=== PATIENT | male | born 1940 | race African-American/Black ===

== ENCOUNTER 2018-11-02 01:59 | Inpatient (IN) ==
[2018-11-02] MEDS ORDERED: ASPIRIN ONE (02:27)
[2018-11-02 02:47] LABS: INR 1.4; PROTIME 18.2 Seconds (11.0-16.0)
[2018-11-02 02:48] LABS: BASO# 0.03 X1000 (0.0-0.2); BASO% 0.3 % (0.0-0.8); EOS# 0.25 X1000 (0.0-0.7); EOS% 2.7 % (0.0-10.0); HEMOGLOBIN 10.6 g/dL (14.0-18.0); LYMPH# 0.89 X1000 (1.2-3.4); LYMPH% 9.5 % (20.5-51.1); MCH 29.7 PG (27-31); MCHC 33.1 g/dL (33-37); MCV 89.6 FL (81-99); MONO# 0.48 X1000 (0.11-0.59); MONO% 5.1 % (1.7-9.3); MPV 12.3 FL (7.4-10.4); NEUT# 7.73 X1000 (1.4-6.5); NEUT% 82.4 % (42.2-75.2); PLT 229 X1000 (130-400); RBC 3.57 XMIL (4.7-6.1); RDW 14.6 % (11.5-14.5); WBC 9.38 X1000 (4.8-10.8)
[2018-11-02] MEDS ORDERED: ASPIRIN PO ONE (02:55)
[2018-11-02 03:15] LABS: AGAP 13; BUN 18 mg/dL (8-22); CHLORIDE 101 mmol/L (98-107); COSMO 283; GLUCOSE 231 mg/dL (70-104); POTASSIUM 5.1 mmol/L (3.5-5.1); SODIUM 137 mmol/L (136-145); TCO2 23 mmol/L (25-35)
[2018-11-02 03:16] LABS: ALB/GLOB RATIO 1.4; ALBUMIN 3.8 g/dL (3.5-5.0); ALKALINE PHOSPHATASE 66 U/L (32-122); CALCIUM 8.5 mg/dL (8.8-10.2); GOT 52 U/L (10-34); TOTAL BILIRUBIN 0.71 mg/dL (0.20-1.00); TOTAL PROTEIN 6.5 g/dL (6.3-8.3)
[2018-11-02 03:17] LABS: GPT 25 U/L (10-44)
[2018-11-02 03:24] LABS: PTT HEPARIN PROTOCOL 26.7 Seconds
[2018-11-02 03:30] LABS: URINE SOURCE CLEAN CATCH
[2018-11-02] MEDS ORDERED: LASIX IV ONE (03:32)
[2018-11-02 03:42] LABS: BILIRUBIN URINE NEGATIVE (NEGATIVE); BLOOD URINE NEGATIVE (NEGATIVE); COLOR YELLOW; GLUCOSE URINE NEGATIVE (NEGATIVE); KETONE URINE NEGATIVE (NEGATIVE); LEUKOCYTES URINE NEGATIVE (NEGATIVE); NITRITE URINE NEGATIVE (NEGATIVE); PH URINE 5.5; PROTEIN URINE TRACE mg/dL (NEGATIVE); SP GRAVITY URINE 1.015; TURBIDITY URINE CLEAR (CLEAR); UR EPITHELIAL CELLS <10 /HPF (<10); URINE BACTERIA NEGATIVE /HPF; URINE RBC <10 /HPF (<10); URINE WBC <10 /HPF (<10); UROBILINOGEN URINE NORMAL (NORMAL)
--- NOTE | 2018-11-02 05:01 | PROVIDER DOCUMENTATION ---
HPI-Chest Pain - General Chief Complaint: Chest Pain Stated Complaint: POST-OP 2 WEEKS, SOB, HURTING IN CHEST. Time Seen by Provider: 11/02/18 02:04 Source: patient Allergies/Adverse Reactions: Patient Allergies Allergy/AdvReac Type Severity Reaction Status Date / Time latex Allergy ITCHING Verified 11/02/18 02:52 Penicillins Allergy ITCHING Verified 11/02/18 02:52 Home Medications: Home Medication List Medication Instructions Recorded Confirmed Last Taken Type Aspirin [Aspir-Low] 81 mg PO DAILY 09/04/16 11/02/18 02/07/18 History Amiodarone HCl 1 tab PO BID 11/02/18 11/02/18 Unknown History Apixaban [Eliquis] 1 tab PO BID 11/02/18 11/02/18 Unknown History Melatonin/Pyridoxine HCl (B6) 1 tab PO QHS PRN 11/02/18 11/02/18 Unknown History [Melatonin 3 mg Tablet] - History of Present Illness-CP Nature of Presenting Problem: 78 y/o BM c/o lt sided chest pain and SOB for the past 1 week. He adds that he just had "watchmans procedure" 2 weeks ago at [facility]. Location: reports: other (lt chest pain) Chest Pain Radiation: reports: no radiation Quality of Pain: reports: aching Severity in ED: mild Onset/Duration: gradual, 1 week ago Timing: gone now, resolved prior to arrival Context/Activities at Onset: reports: light activity Modifying Factors: improves with: rest Associated Symptoms: reports: shortness of breath Nitro Today/Relief: no nitro taken today Aspirin Treatment Today: 81 mg x 1 Prior Chest Pain/Cardiac Workup: reports: cardiac cath Similar Symptoms Previously?: Yes Recently Seen Here or By Another Healthcare Provider: Yes Review of Systems - Adult - REVIEW OF SYSTEMS - ADULT Constitutional: reports: no symptoms reported, see HPI Eyes: reports: no symptoms reported, see HPI Ears, Nose, Mouth & Throat: reports: no symptoms reported, see HPI Cardiovascular: reports: see HPI, chest pain Respiratory: reports: see HPI, shortness of breath Gastrointestinal: reports: no symptoms reported, see HPI Genitourinary: reports: no symptoms reported, see HPI Musculoskeletal: reports: no symptoms reported, see HPI Integumentary: reports: no symptoms reported, see HPI Neurological: reports: no symptoms reported, see HPI Psychiatric: reports: no symptoms reported, see HPI Endocrine: reports: no symptoms reported, see HPI Hematologic/Lymphatic: reports: no symptoms reported, see HPI Allergic/Immunologic: reports: no symptoms reported, see HPI All Other Systems: Reviewed and Negative Past History - Adult - PAST MEDICAL HISTORY-ADULT Review of Records: reports: Nursing Assessment Review, Medications Reviewed, Social history reviewed & non-contributory. Major Childhood Illnesses: reports: history unknown Cardiovascular: reports: A-Fib, CAD, HTN Respiratory: reports: denies history Gastrointestinal: reports: denies history Obstetrical/Gynecological: reports: denies history Genitourinary: reports: denies history Musculoskeletal: reports: arthritis, other (neuropathy) Neurological: reports: CVA, stroke deficits Psychiatric: reports: denies history Endocrine/Immune: reports: Diabetes (insulin dependent) Other Conditions: reports: cataract/glaucoma - PRIOR SURGERIES/PROCEDURES Surgical/Procedure History: reports: CABG, other (cataract removal) - IMMUNIZATION STATUS Childhood Immunizations: See Nurse Assessment Flu Vaccine: See Nurse Assessment - FAMILY HISTORY Family History: reviewed, not pertinent Physical Exam-General - PHYSICAL EXAM-ADULT Initial Vital Signs Reviewed: Yes - CONSTITUTIONAL General Appearance: appears well, alert, no apparent distress - EYES Eyes: PERRL/EOMI - HEAD, EARS, NOSE, MOUTH & THROAT HENMT: normocephalic/atraumatic, moist mucous membranes - NECK Neck: non-tender, full range of motion, supple, normal inspection - RESPIRATORY Respiratory: chest non-tender, lungs clear, normal breath sounds, no pleuratic chest pain, no respiratory distress, no accessory muscle use - CARDIOVASCULAR Cardiovascular: normal peripheral pulses, regular rate, rhythm, no edema, no gallop, no JVD, no murmur - GASTROINTESTINAL (ABDOMEN) Abdominal Exam: normal bowel sounds, non tender, soft, no organomegaly, no pulsatile mass - LYMPHATIC Lymphatic: no adenopathy - MUSCULOSKELETAL Back Exam: normal inspection, no CVA tenderness, no vertebral tenderness Extremity: normal range of motion, non-tender, normal gait, normal inspection, no pedal edema, no calf tenderness, normal capillary refill - SKIN Integumentary: normal color, normal turgor, warm/dry - NEUROLOGIC Neurologic: financial institution manager II-XII nml as tested, grossly normal, no motor/sensory deficits - PSYCHIATRIC Psych/Mental Status: normal mood/affect, normal thought content, normal thought process, oriented x 3 - HEART Score HEART Score: History: Moderately Suspicious HEART Score: ECG: Non-Specific Repolarization Disturbance/LBBB/PM HEART Score: Age: > or = 65 Years HEART Score: Risk Factors for Atherosclerotic Disease: > or = 3 Risk Factors or History of Atherosclerotic Disease HEART Score: Troponin: < or = Normal Limit Total HEART Score:: 6 Progress - PLAN OF CARE/RESULTS Progress/Plan/Lab Results: Vital Signs - 8 hr 11/02/18 02:08 11/02/18 02:11 11/02/18 02:47 Pulse Rate 106 H 100 H 90 Respiratory Rate 9 L 13 16 Blood Pressure 167/111 167/111 145/94 O2 Sat by Pulse Oximetry 91 L 100 99 11/02/18 03:17 11/02/18 03:47 11/02/18 04:02 Pulse Rate 86 84 87 Respiratory Rate 15 18 17 Blood Pressure 174/93 168/94 152/99 O2 Sat by Pulse Oximetry 98 100 100 11/02/18 04:17 11/02/18 04:32 11/02/18 04:47 Pulse Rate 84 80 93 H Respiratory Rate 15 13 20 Blood Pressure 133/81 152/89 134/85 O2 Sat by Pulse Oximetry 100 100 95 11/02/18 05:32 11/02/18 05:47 11/02/18 06:02 Pulse Rate 79 83 89 Respiratory Rate 20 18 21 Blood Pressure 158/91 161/95 160/102 O2 Sat by Pulse Oximetry 100 98 11/02/18 06:17 Pulse Rate 82 Respiratory Rate 16 Blood Pressure 171/91 O2 Sat by Pulse Oximetry 100 Laboratory Results - last 24 hr 11/02/18 11/02/18 11/02/18 02:20 02:20 02:20 WBC 9.38 RBC 3.57 L Hgb 10.6 L Hct 32.0 L MCV 89.6 MCH 29.7 MCHC 33.1 RDW Std Deviation 14.6 H Plt Count 229 MPV 12.3 H Neut % (Auto) 82.4 H Lymph % (Auto) 9.5 L Rains % (Auto) 5.1 Eos % (Auto) 2.7 Baso % (Auto) 0.3 Neut # (Auto) 7.73 H Lymph # (Auto) 0.89 L Rains # (Auto) 0.48 Eos # (Auto) 0.25 Baso # (Auto) 0.03 PT INR PTT (Heparin Protocol) D-Dimer, Quantitative Sodium 137 Potassium 5.1 Chloride 101 Carbon Dioxide 23 L Anion Gap 13 BUN 18 Creatinine 1.0 BUN/Creatinine Ratio 18 Glucose 231 H Calculated Osmolality 283 Calcium 8.5 L Total Bilirubin 0.71 AST 52 H ALT 25 Alkaline Phosphatase 66 Troponin T Plg-U-Bypcqlibgbg Pept 3467 H Total Protein 6.5 Albumin 3.8 Globulin 2.7 Albumin/Globulin Ratio 1.4 Urine Source Urine Color Urine Turbidity Urine pH Ur Specific [place] Urine Protein Ur Glucose (Stick) Ur Ketones (Stick) Urine Blood Urine Nitrite Urine Bilirubin Urobilinogen Dipstick Urine Leukocytes Urine WBC (Auto) Urine RBC (Auto) U Epithel Cells (Auto) Urine Bacteria (Auto) 11/02/18 11/02/18 11/02/18 02:20 02:20 02:35 WBC RBC Hgb Hct MCV MCH MCHC RDW Std Deviation Plt Count MPV Neut % (Auto) Lymph % (Auto) Rains % (Auto) Eos % (Auto) Baso % (Auto) Neut # (Auto) Lymph # (Auto) Rains # (Auto) Eos # (Auto) Baso # (Auto) PT 18.2 H INR 1.40 PTT (Heparin Protocol) 26.7 D-Dimer, Quantitative 6.88 H Sodium Potassium Chloride Carbon Dioxide Anion Gap BUN Creatinine BUN/Creatinine Ratio Glucose Calculated Osmolality Calcium Total Bilirubin AST ALT Alkaline Phosphatase Troponin T < 0.010 Udp-K-Tnsztjrksfg Pept Total Protein Albumin Globulin Albumin/Globulin Ratio Urine Source Urine Color Urine Turbidity Urine pH Ur Specific [place] Urine Protein Ur Glucose (Stick) Ur Ketones (Stick) Urine Blood Urine Nitrite Urine Bilirubin Urobilinogen Dipstick Urine Leukocytes Urine WBC (Auto) Urine RBC (Auto) U Epithel Cells (Auto) Urine Bacteria (Auto) 11/02/18 03:20 WBC RBC Hgb Hct MCV MCH MCHC RDW Std Deviation Plt Count MPV Neut % (Auto) Lymph % (Auto) Rains % (Auto) Eos % (Auto) Baso % (Auto) Neut # (Auto) Lymph # (Auto) Rains # (Auto) Eos # (Auto) Baso # (Auto) PT INR PTT (Heparin Protocol) D-Dimer, Quantitative Sodium Potassium Chloride Carbon Dioxide Anion Gap BUN Creatinine BUN/Creatinine Ratio Glucose Calculated Osmolality Calcium Total Bilirubin AST ALT Alkaline Phosphatase Troponin T Eox-B-Wpulbcjbjtm Pept Total Protein Albumin Globulin Albumin/Globulin Ratio Urine Source CLEAN CATCH Urine Color YELLOW Urine Turbidity CLEAR Urine pH 5.5 Ur Specific [place] 1.015 Urine Protein TRACE A Ur Glucose (Stick) NEGATIVE Ur Ketones (Stick) NEGATIVE Urine Blood NEGATIVE Urine Nitrite NEGATIVE Urine Bilirubin NEGATIVE Urobilinogen Dipstick NORMAL Urine Leukocytes NEGATIVE Urine WBC (Auto) <10 Urine RBC (Auto) <10 U Epithel Cells (Auto) <10 Urine Bacteria (Auto) NEGATIVE Orders Category Date Time Status Admit - [facility] Routine AdmDCTranf 11/02/18 06:54 Active Activity - Up with Assistance ORDERED Care 11/02/18 06:54 Active Apply Mechanical Device [QM] ORDERED Care 11/02/18 06:54 Active FSBS/Accucheck Result AC + HS Care 11/02/18 06:54 Active Intake and Output-Strict ORDERED Care 11/02/18 06:54 Active Nursing- MD Consult Request ROUTINE Care 11/02/18 06:54 Active Vital Signs Order Q 4-HR ASSESS Care 11/02/18 06:54 Active Z-Document. for Tele Applied ORDERED Care 11/02/18 06:54 Active Physician/Provider Consults Routine Cons 11/02/18 06:54 Ordered Diabetic Diet Diet 11/02/18 06:[address] ANGIOGRM PULMONARY ARTERIES [CT] Stat Exams 11/02/18 04:47 Taken cxr [CHEST-1 VIEW] [RAD] Stat Exams 11/02/18 02:19 Taken BASIC METABOLIC PANEL [CHEM] Routine Lab 11/03/18 06:00 Uncollected CBC WITH DIFF [HEME] Routine Lab 11/03/18 06:00 Uncollected CBC WITH ELECTRONIC DIFF [HEME] Stat Lab 11/02/18 02:20 Completed COMPREHENSIVE METABOLIC PANEL [CHEM] Stat Lab 11/02/18 02:20 Completed D-DIMER [COAG] Stat Lab 11/02/18 02:20 Completed PRO B-NATRIURETIC PEPTIDE Stat Lab 11/02/18 02:20 Completed PT [PROTIME WITH INR] [COAG] Stat Lab 11/02/18 02:20 Completed PTT HEPARIN PROTOCOL [COAG] Stat Lab 11/02/18 02:20 Completed TROPONIN T Q8HR Lab 11/02/18 13:00 Uncollected TROPONIN T Q8HR Lab 11/02/18 21:00 Uncollected TROPONIN T Q8HR Lab 11/03/18 05:00 Uncollected TROPONIN T Stat Lab 11/02/18 02:35 Completed TSH Routine Lab 11/03/18 06:00 Uncollected URINALYSIS [URINALYSIS] Stat Lab 11/02/18 03:20 Completed Amiodarone [Cordarone] Med 11/02/18 09:00 Active 200 mg PO BID Apixaban [Eliquis] Med 11/02/18 09:00 Active 5 mg PO BID Aspirin Med 11/02/18 02:27 Discontinued 325 mg .ROUTE .STK-MED ONE Aspirin Med 11/02/18 02:55 Discontinued 325 mg PO NOW ONE Aspirin EC Med 11/02/18 09:00 Active 81 mg PO DAILY Furosemide [Lasix] Med 11/02/18 03:32 Discontinued 40 mg IV NOW ONE Furosemide [Lasix] Med 11/02/18 06:54 Active 40 mg IV Q12H Insulin Human Regular [Humulin R] Med 11/02/18 07:00 Active See Protocol SUBQ 0700,1100,1600,2100 Telemetry [OM.EQ] Routine Oth 11/02/18 06:54 Active EKG [EKG] Stat Ther 11/02/18 02:18 Ordered Transfer/Admit Order [TRANSFER] Routine Transfer 11/02/18 05:50 Completed Result Diagrams: 11/02/18 02:20 11/02/18 02:20 Departure - Departure Date of Disposition Decision: 11/02/18 Time of Disposition Decision: 06:05 DIAGNOSIS: CHF (congestive heart failure), Pleural effusion, Elevated d-dimer Disposition: ADMITTED INPATIENT 09 Certified Medical Emergency: Emergent Condition: Fair - Critical Care Note This patient required my direct & personal management of CC.: No Attestation - Physician/ HELEN Attestation Patient care was provided by Advanced Practice Provider:: No The physician spent face to face time with patient:: Yes Advanced Practice Provider documentation review:: Supervising physician onsite and consulted in the evaluation and care of this patient. The physician did have a face to face encounter with the patient.
--- NOTE | 2018-11-02 06:12 | HISTORY AND PHYSICAL ---
PRIMARY CARE PHYSICIAN: Dr. Anatoliy Koch. CHIEF COMPLAINT: Shortness of breath for week. HISTORY OF PRESENTING ILLNESS: A 78-year-old male with a history of diabetes mellitus type 2, hypertension, coronary disease, CVA, chronic atrial fibrillation who had presented to emergency department with 1-week history of progressive worsening shortness of breath. The patient states that he was having difficulty breathing and subsequently he had come to the emergency department. The patient, apparently, also had recently a Watchman procedure done for his atrial fibrillation. The patient was seen in the emergency department, he was found to be in heart failure. Due to his presenting symptoms, he will require admission for further management. At the time of my examination, he denied any headache, fever, chills, nausea, vomiting, diarrhea, hemoptysis, but complained of chest pain and shortness of breath. PAST MEDICAL HISTORY: Include diabetes mellitus type 2, hypertension, hyperlipidemia, CHF, systolic dysfunction, coronary artery disease, chronic atrial fibrillation, CVA, thoracic aortic aneurysm. PAST SURGICAL HISTORY: Coronary bypass, Watchman procedure, cataract surgery. ALLERGIES: Penicillin, latex. CURRENT MEDICATIONS INCLUDE: 1. Amiodarone 200 mg p.o. b.i.d. 2. Eliquis 5 mg, 1 tab b.i.d. 3. Aspirin 81 mg p.o. daily. SOCIAL HISTORY: He is a former smoker. No history of alcohol or illicit drug use. FAMILY HISTORY: Positive for coronary disease in mother and father. REVIEW OF SYSTEMS: Fourteen point review of systems is as in HPI. Other systems negative. PHYSICAL EXAMINATION: GENERAL: Cooperative, friendly male. He is resting more comfortably now. VITAL SIGNS: Pulse 106, respirations 18, blood pressure is 167/111. Saturating 91%. HEENT: Atraumatic, normocephalic. Extraocular movements intact. PERRLA. NECK: No masses. CHEST: Bibasilar rales. CARDIOVASCULAR: Irregular. ABDOMEN: Soft. Positive bowel sounds. EXTREMITIES: +1 edema. NEUROLOGIC: He is awake, alert, oriented x3. GENITOURINARY: No bladder distention. SKIN: Warm. LABORATORIES AND STUDIES: WBCs 9.38, hemoglobin 10.6, hematocrit 32.0, platelets 229,000. Sodium 137, potassium 5.1, chloride 101, CO2 of 23, BUN is 18, creatinine is 1.0. Glucose is 231. ProBNP is 3467. Troponin 0.010. CT angiogram and chest x-ray are pending. ASSESSMENT: A 78-year-old male with a history of diabetes mellitus type 2, hypertension, coronary disease, chronic atrial fibrillation, congestive heart failure, who had presented to emergency department with 1-week history of progressive worsening shortness of breath. He was evaluated in the emergency department. He was found to be in heart failure. Subsequently, he will require admission for further management. 1. Chest pain. 2. Acute on chronic congestive heart failure. 3. Elevated D-dimer. Will need to rule out pulmonary embolism. 4. Diabetes mellitus type 2. 5. Hypertension. PLAN: 1. We will admit patient to [facility]. 2. Continue with cardiac workup. Check EKG, serial cardiac enzymes. 3. Continue with gentle diuresis, Lasix, and consult Cardiology. 4. We are waiting CT angiogram results. 5. We will monitor blood glucose and put patient on sliding scale insulin regimen. 6. We will monitor blood pressure and resume antihypertensive agent. 7. Will continue patient on his anticoagulation for DVT prophylaxis. 8. We will continue to follow and reassess, make further recommendation based on patient's clinical course. cc: Jeff Galloway MD
--- NOTE | 2018-11-02 07:32 | Diag Imaging Result Doc PS360 ---
CHEST-1 VIEW - 11/02/2018 INDICATION: chest pain COMPARISON: 09/07/2018 FINDINGS: Stable sternotomy changes. Stable mild cardiomegaly. Stable pulmonary vascular congestion. There are small bilateral pleural effusions. IMPRESSION: Cardiomegaly and pulmonary vascular congestion. Bilateral pleural effusions. Electronically signed by Rony Koroma 11/02/2018 7:29 AM
[2018-11-02] MEDS: LASIX IV SCH ×2 (08:10→17:00)
[2018-11-02] MEDS: ASPIRIN EC PO SCH (08:11)
[2018-11-02] MEDS: CORDARONE PO SCH ×2 (08:11→21:31)
[2018-11-02] MEDS: HUMULIN R SUBQ SCH ×4 (08:12→21:32)
--- NOTE | 2018-11-02 08:15 | Diag Imaging Result Doc PS360 ---
CT ANGIOGRM PULMONARY ARTERIES - 11/02/2018 INDICATION: elevated d-dimer TECHNIQUE: Axial CT images were obtained after administering intravenous contrast. Coronal MIP images were generated. COMPARISON: CT abdomen pelvis 09/11/2018 FINDINGS: There are CABG changes. There is cardiomegaly. There is an oval rim calcified thrombus in the left atrial appendage measuring 3 cm. There are moderately large bilateral pleural effusions. There is hazy interstitial pulmonary edema. The main pulmonary artery is enlarged which may represent pulmonary artery hypertension. There is some dense sludge or small stones in the gallbladder stable from prior. There is probably trace ascites in the upper abdomen. There are moderate degenerative changes of the spine. No acute or suspicious bony lesion. IMPRESSION: 1. Negative for pulmonary embolism. 2. Congestive heart failure. 3. 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 4. Trace ascites. Sludge in the gallbladder. This exam was performed using automated exposure control, adjustment of mA or kV according to patient size, and/or use of iterative reconstruction technique Electronically signed by Rony Koroma 11/02/2018 8:13 AM
[2018-11-02] MEDS: ELIQUIS PO SCH ×2 (09:50→21:31)
--- NOTE | 2018-11-02 14:24 | CARDIOLOGY CONSULTATION ---
DATE: 11/02/2018 CHIEF COMPLAINT ON PRESENTATION: Shortness of breath. HISTORY OF PRESENT ILLNESS: Mr. Byrd is a 78-year-old black male with a history of atrial fibrillation normally followed by Dr. Price last visit October 09. He reported had a Watchman procedure done around 2 weeks ago in [place] and had been doing well until around 3 to 4 days ago when he began having progressively worse shortness of breath as well as orthopnea. He is not aware of any recent changes in his medications. He does have a history of some dementia. His is not currently present at the bedside to assist. He is not aware of any fevers and he has no pain complaints of the time. He reports compliance with his medications. PAST MEDICAL HISTORY: 1. Significant for atrial fibrillation. Recent Watchman procedure done at [facility]. 2. Coronary disease with coronary bypass grafting performed in 2013. He had a HERNANDEZ to the LAD, vein graft to the 2nd diagonal and a vein graft to an obtuse marginal. His most recent nuclear scan in January 2018 showed a normal ejection fraction of 52% with normal perfusion. 3. Systolic heart failure. He had an ejection fraction documented at 35% by JESSICA in September at [facility]. 4. Thoracic aortic aneurysm. 5. Mitral regurgitation. 6. Hypertension. 7. Hyperlipidemia. 8. Diabetes. 9. Dementia. SOCIAL HISTORY: Previous smoker. He is . His is not present. FAMILY HISTORY: Significant for coronary disease in mother and father. REVIEW OF SYSTEMS: A 10 system review of systems is negative except for those things mentioned in HPI. PHYSICAL: Afebrile. Heart rate 92, blood pressure 132/78.General: No acute distress. HEENT: Oropharynx is moist. Poor dentition. Eye examination shows pink conjunctivae. White sclerae. Neck: Shows no obvious thyromegaly or thyroid tenderness. Cardiovascular: He sounds to be in a irregularly irregular rhythm consistent with atrial fibrillation. He has no murmurs. He has no lower extremity edema. Chest: Sounds clear bilaterally. No increased work of breathing. Abdomen: Soft, nontender, nondistended. No obvious organomegaly. Skin: Warm and dry throughout without any rashes. Neurological: Moving all extremities well. He has no lateralizing deficits. Psychiatric: Alert, oriented, pleasant. Normal mood and affect. PERTINENT DATA: He had a CTA of his chest that was negative for pulmonary embolism. Suggestion of pulmonary edema. Watchman device was visualized in the left atrial appendage. I reviewed the images. Laboratory data shows a white count of 9.3, hematocrit of 32, his platelet count was 229,000. His INR is 1.4, D-dimer 6.8, sodium 137, potassium 5.1. His BUN is 18 with a creatinine of 1. His proBNP was 3467. ASSESSMENT: Mr. Byrd is 78-year-old gentleman who has a history of systolic heart failure. PLAN: I would continue with the diuresis as you are doing. He seems to have a negative fluid balance thus far. We will continue on current medications. His blood pressure seems reasonably controlled by the most recent of 132/78. However, he did have some significant elevations prior to that. For now, we will continue with current regimen. cc: Erik Deal MD
--- NOTE | 2018-11-02 15:13 | PROGRESS NOTE ---
DATE: 11/02/2018 SUBJECTIVE: The patient has no focal complaints. He seems to be breathing a bit better. OBJECTIVE: Vital Signs: Blood pressure is 132/78, heart rate 92, respiratory rate 15, temperature 97.8 degrees, satting 100% on 2 L. Cardiovascular: Regular rate and rhythm. Pulmonary: Bilateral breath sounds diminished at the bases. No rales. GI: Soft, nontender, nondistended. Bowel sounds are positive. LABORATORY DATA: White count 9. I do not have any major data changes here. PROBLEM LIST: 1. Acute diastolic heart failure. We will continue diuretics. Cardiology is following closely. 2. Elevated D-dimer. His computed tomography angiography is negative. We will go ahead and complete the workup with venous Dopplers, although he is anticoagulated on apixaban, so I think the chances of him having a deep vein thrombosis are scant to minimal. 3. Atrial fibrillation appears to be rate controlled. Anticipate another I think 1 to 2 days probably hopefully no more than 1 day of diuresis, and I think he should be able to go home. 4. Diabetes. He appears to be not completely controlled, but he is not on his regular medications. We will initiate those. Continue sliding scale and check an A1c. Again hopefully anticipate discharge soon. cc: Fredy Santo MD
[2018-11-02] MEDS: NOVOLOG MIX 70/30 SUBQ SCH (17:00)
[2018-11-03 05:31] LABS: BASO# 0.04 X1000 (0.0-0.2); BASO% 0.5 % (0.0-0.8); EOS# 0.35 X1000 (0.0-0.7); EOS% 4.8 % (0.0-10.0); HEMATOCRIT 31.8 % (42.0-52.0); HEMOGLOBIN 10.5 g/dL (14.0-18.0); IMM GRAN# 0.02 X1000 (0.0-0.04); IMM GRAN% 0.3 % (0.0-0.5); LYMPH# 1.09 X1000 (1.2-3.4); LYMPH% 14.9 % (20.5-51.1); MCH 28.8 PG (27-31); MCV 87.1 FL (81-99); MONO# 0.53 X1000 (0.11-0.59); MONO% 7.2 % (1.7-9.3); NEUT# 5.31 X1000 (1.4-6.5); NEUT% 72.3 % (42.2-75.2); PLT 292 X1000 (130-400); RBC 3.65 XMIL (4.7-6.1); RDW 14.4 % (11.5-14.5); WBC 7.34 X1000 (4.8-10.8)
[2018-11-03] MEDS: LASIX IV SCH ×2 (05:47→16:28)
[2018-11-03] MEDS: NOVOLOG MIX 70/30 SUBQ SCH ×2 (06:00→18:40)
[2018-11-03] MEDS: HUMULIN R SUBQ SCH ×4 (06:00→20:40)
[2018-11-03 06:10] LABS: AGAP 13; BUN 14 mg/dL (8-22); CALCIUM 8.4 mg/dL (8.8-10.2); CHLORIDE 101 mmol/L (98-107); COSMO 285; CREATININE 0.8 mg/dL (0.7-1.2); ESTIMATED GFR > 60; GLUCOSE 119 mg/dL (70-104); POTASSIUM 3.1 mmol/L (3.5-5.1); SODIUM 142 mmol/L (136-145); TCO2 28 mmol/L (25-35)
[2018-11-03 06:43] LABS: HEMOGLOBIN A1C 6.9 % (4.8-6.0)
[2018-11-03] MEDS: CORDARONE PO SCH ×2 (09:07→20:43)
[2018-11-03] MEDS: ELIQUIS PO SCH ×2 (09:07→20:43)
[2018-11-03] MEDS: ASPIRIN EC PO SCH (09:07)
[2018-11-03] MEDS ORDERED: KLOR-CON PO ONE (10:45)
--- NOTE | 2018-11-03 15:01 | CARDIOLOGY PROGRESS NOTE ---
DATE: 11/03/2018 SUBJECTIVE: Mr. Byrd has no complaints. No shortness of breath. No orthopnea. PHYSICAL EXAMINATION: Vital Signs: Afebrile. Heart rate 102, blood pressure 126/79. His I's and O's are -375 mL total. He did have 2 outputs not recorded. General: No acute distress. Cardiovascular: He has an irregular rate and rhythm. He has no murmurs, no S3. He has no lower extremity edema. Chest: His chest exam sounds clear bilaterally. He has no increased work of breathing. Abdomen: Soft, nontender. PERTINENT DATA: Sodium 142, potassium 3.1, BUN 14, creatinine 0.8. ASSESSMENT: Mr. Byrd is a 78-year-old gentleman with a history of heart failure and atrial fibrillation. PLAN: We will continue diurese him. I will check a proBNP in the morning as well as a chest x- ray. We will ensure that his potassium has been repleted. cc: Erik Deal MD
[2018-11-03] MEDS ORDERED: LOPRESSOR PO ONE (15:12)
--- NOTE | 2018-11-03 15:35 | PROGRESS NOTE ---
DATE: 11/03/2018 SUBJECTIVE: The patient looks well. He is sitting up in his chair. No major complaints. OBJECTIVE: Blood pressure 126/79, heart rate of 102, respiratory rate of 20, temperature 97.4 degrees, 99% on 2 L. Urine output recorded at 1525. ASSESSMENT: 1. Acute diastolic heart failure exacerbation. He is on intravenous diuretics. He is on his regular medications. He is still a bit tachycardic. He is only on amiodarone. I am not sure if maybe we could add a little bit of Toprol. I am going to add just a little bit of Toprol and see if that may help some. 2. Diabetes. Appears to be overall well controlled. He is still a little bit elevated. His A1c is only 6.9 so we will continue to follow. 3. Elevated D-dimer. He has had a pulmonary arteriogram. I believe I ordered Dopplers. We will order Dopplers just to make sure there is nothing going on. At this point, we can do them in the morning. DISPOSITION: I think if he stabilizes by tomorrow, probably go home at the discretion of cardiology. cc: Fredy Santo MD
[2018-11-04] MEDS: LASIX IV SCH ×2 (06:06→17:36)
[2018-11-04] MEDS: HUMULIN R SUBQ SCH ×4 (06:06→21:27)
[2018-11-04 07:04] LABS: BASO# 0.02 X1000 (0.0-0.2); BASO% 0.2 % (0.0-0.8); EOS# 0.28 X1000 (0.0-0.7); EOS% 3.2 % (0.0-10.0); HEMATOCRIT 33.6 % (42.0-52.0); HEMOGLOBIN 10.9 g/dL (14.0-18.0); IMM GRAN# 0.02 X1000 (0.0-0.04); IMM GRAN% 0.2 % (0.0-0.5); LYMPH# 0.97 X1000 (1.2-3.4); LYMPH% 11.1 % (20.5-51.1); MCH 28.6 PG (27-31); MCHC 32.4 g/dL (33-37); MCV 88.2 FL (81-99); MONO# 0.41 X1000 (0.11-0.59); MONO% 4.7 % (1.7-9.3); MPV 11.2 FL (7.4-10.4); NEUT# 7.04 X1000 (1.4-6.5); NEUT% 80.6 % (42.2-75.2); PLT 325 X1000 (130-400); RBC 3.81 XMIL (4.7-6.1); RDW 14.7 % (11.5-14.5); WBC 8.74 X1000 (4.8-10.8)
--- NOTE | 2018-11-04 07:15 | EKG Report ---
Test Performed on : 11/02/2018 02:14:04 AM Test Reason : chest pain Blood Pressure : / mmHG Vent. Rate : 098 BPM Atrial Rate : 288 BPM P-R Int : 000 ms QRS Dur : 088 ms QT Int : 356 ms P-R-T Axes : 000 013 098 degrees QTc Int : 454 ms Atrial flutter. with variable AV block. Nonspecific T wave abnormality Abnormal ECG When compared with ECG of 07-SEP-2018 20:03, (Unconfirmed) Atrial flutter. has replaced Atrial fibrillation. Unconfirmed Result
[2018-11-04 07:33] LABS: AGAP 11; BUN 19 mg/dL (8-22); CALCIUM 8.7 mg/dL (8.8-10.2); CHLORIDE 97 mmol/L (98-107); COSMO 285; CREATININE 1.1 mg/dL (0.7-1.2); ESTIMATED GFR > 60; GLUCOSE 228 mg/dL (70-104); MAGNESIUM 1.7 mg/dL (1.5-2.7); POTASSIUM 4.2 mmol/L (3.5-5.1); SODIUM 138 mmol/L (136-145); TCO2 30 mmol/L (25-35)
--- NOTE | 2018-11-04 07:49 | Diag Imaging Result Doc PS360 ---
CHEST-2 VIEWS - 11/04/2018 INDICATION: hypoxia COMPARISON: 11/02/2018 FINDINGS: Stable sternotomy wires. Stable device in the region of the left atrial appendage. Heart size and pulmonary vascularity is top normal. No infiltrates or edema. No pneumothorax or pleural effusion. IMPRESSION: No acute disease. Electronically signed by Rony Koroma 11/04/2018 7:47 AM
[2018-11-04] MEDS: NOVOLOG MIX 70/30 SUBQ SCH ×2 (10:02→17:17)
[2018-11-04] MEDS: ASPIRIN EC PO SCH (10:04)
[2018-11-04] MEDS: CORDARONE PO SCH ×2 (10:05→21:20)
[2018-11-04] MEDS: LOPRESSOR PO SCH ×2 (10:05→21:19)
[2018-11-04] MEDS: ELIQUIS PO SCH ×2 (10:05→21:19)
--- NOTE | 2018-11-04 13:08 | DISCHARGE SUMMARY ---
ADMISSION DATE: 11/02/2018 DISCHARGE DATE: 11/04/2018 ADMITTING DIAGNOSES: 1. Acute on chronic diastolic heart failure. 2. Chest pain. 3. Elevated D-dimer. 4. Type 2 diabetes. 5. Hypertension. 6. Chronic atrial fibrillation, status post recent Watchman procedure. DISCHARGE DIAGNOSES: 1. Acute on chronic diastolic heart failure. 2. Chest pain. 3. Elevated D-dimer. 4. Type 2 diabetes. 5. Hypertension. 6. Chronic atrial fibrillation, status post recent Watchman procedure. CONSULTATIONS: Dr. Erik Deal with Cardiology. DIAGNOSTIC PROCEDURES AND FINDINGS: EKG on 11/02/2018 shows atrial fibrillation, rate controlled. Chest x-ray on 11/02/2018 showed cardiomegaly and pulmonary vascular congestion, bilateral pleural effusions. CTA on 11/02/2018 shows negative for PE, congestive heart failure, chronic calcified thrombus in the left atrial appendage, trace ascites/sludge in the gallbladder. Chest x-ray on 11/04/2018 with no acute disease. HOSPITAL COURSE: Mr. Byrd is a 78-year-old male with a history of type 2 diabetes, CAD, chronic atrial fibrillation, who presented to the hospital with 1 week of progressive shortness of breath. He recently had a Watchman procedure done, which is a left atrial appendage device, for stroke prophylaxis due to atrial fibrillation. He was not complaining of any fevers. He was having some mild chest discomfort as well as orthopnea. He came into the ER and was noted to have elevated ProBNP and pulmonary edema on chest x-ray. Elevated D-dimer was also noted which prompted a CTA of the chest which was negative for PE. There was some pulmonary edema noted. He was admitted for diastolic heart failure, as he had an echocardiogram done 01/29/2018 which showed EF of 52%. He was given IV diuresis, and we added metoprolol to his medications which improved his symptoms. He had good diuresis. We consulted Cardiology who agreed with the plan. Today, he is breathing much better, and his chest x-ray shows resolution of pulmonary edema. His vital signs are stable, and he is now ready for discharge home. DISCHARGE MEDICATIONS: Aspirin 81 mg daily, amiodarone 200 mg p.o. b.i.d., Eliquis 5 mg p.o. b.i.d., melatonin 3 mg p.o. nightly at bedtime as needed for insomnia, NovoLog 70/30 ten units subcutaneously p.m., NovoLog 70/30 twenty-five units subcutaneously a.m., Lasix 40 mg p.o. daily, Toprol-XL 25 mg p.o. daily. DISCHARGE DIET: Diabetic. DISCHARGE ACTIVITY: Resume activity as tolerated. DISPOSITION AND OTHER DISCHARGE INSTRUCTIONS: The patient is discharged home to self care. He is to follow up with his staffing mgr, Dr. Barb Price, within the month, and his PCP within the month or sooner if needed. He is to continue all medications as directed and return to the ER or call 911 for any worsening complaints or concerns. All questions have been answered. Discharge time is greater than 35 minutes. Dictated by DERIC Espino for Fredy Santo MD cc: DERIC Espino MD Shi Chi Cheng, MD
--- NOTE | 2018-11-04 15:53 | Diag Imaging Result Doc PS360 ---
EXAM: CT HEAD W/O CONTRAST INDICATION: encephalopathy TECHNIQUE: This exam was performed using automated exposure control, adjustment of mA or kV according to patient size, and/or use of iterative reconstruction technique. COMPARISON: 02/08/2018 FINDINGS: There is stable moderate diffuse brain atrophy. There are multiple chronic lacunar infarcts involving the basal ganglia bilaterally and the thalamus on the left that are stable. There are stable chronic lacunar infarcts involving the caudate heads bilaterally and in the left cerebellar hemisphere. There is a vague focus of low attenuation in the superior lyndon on the left that is not clearly identified previously. This could represent a lacunar infarct that has developed during the interval. A late acute or subacute lacunar infarct cannot be excluded. There is no definite acute infarct given the limited sensitivity of CT versus MRI. There is no discrete intracranial mass, mass effect, or intracranial hemorrhage. The surrounding soft tissues and bony structures are essentially unremarkable. IMPRESSION: Multiple chronic lacunar infarcts as described with a vague focus of low attenuation in the superior lyndon on the left not clearly identified previously that may represent a late acute or subacute lacunar infarct. Please correlate clinically. Electronically signed by Luis Miguel James 11/04/2018 3:51 PM
--- NOTE | 2018-11-04 18:21 | Extremity Venous Study ---
PROCEDURE NAME: Venous U/S Bilateral Legs - 11/04/2018 PALLIATIVE CARE NURSE: Itzel. REQUESTING PHYSICIAN: Fredy Santo MD INDICATIONS: Edema. FINDINGS: Deep and superficial veins of the bilateral lower extremities were visualized along their course. All vessels appear compressible with forward flow and no obvious intraluminal thrombus. There are several focal areas of thickening of the green, which could be consistent with chronic DVT, but there is patency noted at each location and no evidence of acute thrombus. SUMMARY: Chronic changes in several locations in the bilateral lower extremities, but no acute deep or superficial venous thrombosis seen. cc: MD Fredy Howard MD
[2018-11-04 19:17] LABS: URINE SOURCE CLEAN CATCH
[2018-11-04 19:23] LABS: BILIRUBIN URINE NEGATIVE (NEGATIVE); BLOOD URINE NEGATIVE (NEGATIVE); COLOR YELLOW; GLUCOSE URINE NEGATIVE (NEGATIVE); KETONE URINE NEGATIVE (NEGATIVE); LEUKOCYTES URINE NEGATIVE (NEGATIVE); NITRITE URINE NEGATIVE (NEGATIVE); PH URINE 6.5; PROTEIN URINE TRACE mg/dL (NEGATIVE); SP GRAVITY URINE 1.004; TURBIDITY URINE CLEAR (CLEAR); UROBILINOGEN URINE NORMAL (NORMAL)
[2018-11-04 19:25] LABS: UR EPITHELIAL CELLS <10 /HPF (<10); URINE BACTERIA NEGATIVE /HPF; URINE RBC <10 /HPF (<10); URINE WBC <10 /HPF (<10)
[2018-11-04 19:31] LABS: URINE CRYSTALS NONE SEEN
[2018-11-04] MEDS ORDERED: SEROQUEL PO SCH (21:00)
--- NOTE | 2018-11-04 21:06 | DISCHARGE SUMMARY ---
ADMISSION DATE: 11/02/2018 DISCHARGE DATE: DISCHARGE ADDENDUM: His feels like he is confused today. She says he has called them and she thought he was at home, but although highly functioning I think he has some baseline dementia. I am not sure if that is a big change because apparently in January he had an episode of confusion at that time. I think he does get some sundowning which he has had previously. In any case, from a clinical standpoint, he is breathing all right. His chest x-ray is clear. His vital signs are stable. Sats are 100%. His lungs are clear. He is afebrile. Hemoglobin and hematocrit is 10 and 33. I will get a UA and a head CT just to make sure there have not been any acute changes, but anticipate he can be discharged. I think he probably has some mild degree of vascular dementia that is probably worsened since he has been in the hospital. I did go ahead and add a little bit of Toprol and Lasix to his home medications. I will write for some Seroquel for the to see if maybe that may help him at night until he can follow up with his primary care provider. TIME SPENT: 32 minute discharge. cc: MD Dr. Anatoliy Negrete (PCP) Erik Deal MD [facility] CENTERDerek
[2018-11-04 21:31] LABS: AGAP 12; ALB/GLOB RATIO 1.7; ALBUMIN 3.4 g/dL (3.5-5.0); ALKALINE PHOSPHATASE 62 U/L (32-122); BUN 27 mg/dL (8-22); CALCIUM 8.3 mg/dL (8.8-10.2); CHLORIDE 97 mmol/L (98-107); COSMO 282; CREATININE 1.3 mg/dL (0.7-1.2); ESTIMATED GFR > 60; GLUCOSE 87 mg/dL (70-104); GOT 20 U/L (10-34); GPT 20 U/L (10-44); POTASSIUM 4.3 mmol/L (3.5-5.1); SODIUM 139 mmol/L (136-145); TCO2 30 mmol/L (25-35); TOTAL BILIRUBIN 0.48 mg/dL (0.20-1.00); TOTAL PROTEIN 5.4 g/dL (6.3-8.3)
[2018-11-05] MEDS: HUMULIN R SUBQ SCH ×2 (06:00→11:57)
[2018-11-05] MEDS: NOVOLOG MIX 70/30 SUBQ SCH (06:01)
[2018-11-05] MEDS: LASIX IV SCH (06:08)
[2018-11-05 07:07] LABS: BASO# 0.02 X1000 (0.0-0.2); BASO% 0.2 % (0.0-0.8); EOS# 0.05 X1000 (0.0-0.7); EOS% 0.5 % (0.0-10.0); HEMATOCRIT 35.9 % (42.0-52.0); HEMOGLOBIN 11.8 g/dL (14.0-18.0); IMM GRAN# 0.02 X1000 (0.0-0.04); IMM GRAN% 0.2 % (0.0-0.5); LYMPH# 1.74 X1000 (1.2-3.4); MCH 28.9 PG (27-31); MCHC 32.9 g/dL (33-37); MCV 87.8 FL (81-99); MONO# 0.52 X1000 (0.11-0.59); MONO% 5.4 % (1.7-9.3); MPV 11.3 FL (7.4-10.4); NEUT# 7.32 X1000 (1.4-6.5); NEUT% 75.7 % (42.2-75.2); PLT 331 X1000 (130-400); RBC 4.09 XMIL (4.7-6.1); RDW 14.8 % (11.5-14.5); WBC 9.67 X1000 (4.8-10.8)
[2018-11-05 07:41] VITALS: BP 137/78
[2018-11-05] MEDS: LOPRESSOR PO SCH (09:13)
[2018-11-05] MEDS: CORDARONE PO SCH (09:13)
[2018-11-05] MEDS: ELIQUIS PO SCH (09:13)
[2018-11-05] MEDS: ASPIRIN EC PO SCH (09:13)
--- NOTE | 2018-11-05 11:59 | Diag Imaging Result Doc PS360 ---
EXAM: MRI BRAIN W/WO CONTRAST 11/04/2018 HISTORY: r/o cva TECHNIQUE: T1 sagittal, axial and post gadolinium-enhanced axial with coronal reformation, T2, FLAIR, DWI axial and coronal gradient echo. COMMENT: There is a lacune present in the left thalamus and multiple small lacunae and/or prominent perivascular spaces are present in the basal ganglia bilaterally. There is patchy periventricular white matter hyperintensity on T2 particularly in the jim radiata regions. There is no evidence of restricted diffusion. There is no evidence of abnormal gadolinium enhancement. IMPRESSION: Minimal chronic microvascular changes. No evidence of acute disease. Electronically signed by Niko Young 11/05/2018 11:57 AM
--- NOTE | 2018-11-05 18:18 | DISCHARGE SUMMARY ---
ADMISSION DATE: 11/02/2018 DISCHARGE DATE: 11/05/2018 ADDENDUM: He was seen last night. He got confused or his felt that he was more confused than usual, although he has had episodes like this before, I feel like, but there was concern maybe he had a change from baseline including altered mentation. We kept him for another 24 hours. His urinalysis was negative. His head CT showed a questionable subacute infarct with multiple chronic infarcts and some pretty significant ventriculomegaly which is most likely related to cerebral atrophy, could be other possibilities as well. MRI the following day was negative. He was breathing comfortably and we decided to discharge him. All medications were listed previously in the discharge summary dictated yesterday. I encouraged him to follow up with his PCP and go from there. cc: Fredy Santo MD
--- NOTE | 2018-11-08 14:16 | Carotid Study ---
DATE: 11/05/2018 PROCEDURE: Bilateral carotid ultrasound study. REQUESTING PHYSICIAN: Fredy Santo MD. INTERPRETING PHYSICIAN: Zach Interiano MD. TECH: [place]. Previous complications from 11/02/2017. INDICATIONS: TIA. EQUIPMENT: [employer]id E9 ultrasound system with a 9LD transducer. OBSERVED DATA RIGHT LEFT Brachial Blood Pressure Carotid Pulse Bruits: Carotid/Sub DIAGRAM OF ULTRASOUND IMAGING R L RIGHT INT EXT INT EXT LEFT Carlos (cm/s) Carlos (cm/s) Subclavian 62/0 Subclavian 73/0 CCA Proximal 59/8 CCA Proximal 76/8 CCA Distal 51/10 CCA Distal 45/6 Bulb 36/7 Bulb 33/10 ICA Proximal 29/8 ICA Proximal 20/7 ICA Mid 44/14 ICA Mid 42/12 ICA Distal 54/14 ICA Distal 51/17 ECA 71/0 ECA 49/0 Vertebral 47/14 A Vertebral 48/9 A ICA/CCA Ratio 0.92 ICA/CCA Ratio 0.68 % Stenosis 0-39% % Stenosis 0-39% FINDINGS: Minimal atherosclerosis, which at this time does not produce a hemodynamically significant flow-limiting stenosis. Both vertebral arteries are antegrade flow. PHYSICIAN INTERPRETATION: By strict velocity criteria, no hemodynamically significant flow- limiting stenosis noted bilateral carotid arteries. cc: MD Fredy Russo MD
== END 2018-11-05 14:07 | disposition home or self-care (01) | DRG 293 ==
LOC: ED 01:59 → SUATTDRO 06:23 → 3S 06:23 → 3N 17:20
PROVIDERS: ATTEND Internal Medicine
CPT/HCPCS: 70450; 70553; 71010; 71020; 71045; 71046; 71275; 80048; 80053; 81001; 82948; 83036; 83735; 83880; 84443; 84484; 85025; 85379; 85610; 85730; 93005; 93880; 93970; 96374; 97162; 99285; A9270; A9579; J1940; Q9967; XXXXX

== ENCOUNTER 2018-12-05 07:53 | Inpatient (IN) ==
--- NOTE | 2018-12-05 09:10 | Diag Imaging Result Doc PS360 ---
EXAM: CHEST-2 VIEWS HISTORY: CP TECHNIQUE: Chest two views COMPARISON: 11/04/2018 FINDINGS: The lungs are well expanded. The heart is not enlarged. Sternal wires are present. The vessels are not distended. There are no infiltrates. There are tiny pleural effusions. IMPRESSION: Development of tiny pleural effusions. Electronically signed by Nils Barry 12/05/2018 9:07 AM
[2018-12-05] MEDS ORDERED: NITROGLYCERIN SL ONE ×2 (09:34→10:22)
[2018-12-05 09:40] LABS: BASO# 0.04 X1000 (0.0-0.2); BASO% 0.6 % (0.0-0.8); EOS# 0.12 X1000 (0.0-0.7); EOS% 1.8 % (0.0-10.0); HEMATOCRIT 33.1 % (42.0-52.0); LYMPH% 12.1 % (20.5-51.1); MCH 28.1 PG (27-31); MCHC 33.2 g/dL (33-37); MCV 84.4 FL (81-99); MONO# 0.35 X1000 (0.11-0.59); MONO% 5.3 % (1.7-9.3); MPV 11.8 FL (7.4-10.4); NEUT# 5.32 X1000 (1.4-6.5); NEUT% 80.2 % (42.2-75.2); PLT 234 X1000 (130-400); RBC 3.92 XMIL (4.7-6.1); RDW 16.4 % (11.5-14.5); WBC 6.63 X1000 (4.8-10.8)
[2018-12-05 09:50] LABS: INR 1.23; PROTIME 16.5 Seconds (11.0-16.0)
[2018-12-05 10:10] LABS: AGAP 12; ALB/GLOB RATIO 1.3; ALBUMIN 3.7 g/dL (3.5-5.0); ALKALINE PHOSPHATASE 85 U/L (32-122); BUN 15 mg/dL (8-22); CALCIUM 8.3 mg/dL (8.8-10.2); CHLORIDE 100 mmol/L (98-107); CK PROFILE 128 U/L (24-204); COSMO 285; CREATININE 1.1 mg/dL (0.7-1.2); ESTIMATED GFR > 60; GLUCOSE 251 mg/dL (70-104); GOT 25 U/L (10-34); GPT 30 U/L (10-44); POTASSIUM 4.3 mmol/L (3.5-5.1); SODIUM 138 mmol/L (136-145); TCO2 26 mmol/L (25-35); TOTAL PROTEIN 6.6 g/dL (6.3-8.3)
--- NOTE | 2018-12-05 10:11 | EKG Report ---
Test Performed on : 12/05/2018 07:58:32 AM Test Reason : CP Blood Pressure : / mmHG Vent. Rate : 083 BPM Atrial Rate : 326 BPM P-R Int : 000 ms QRS Dur : 086 ms QT Int : 382 ms P-R-T Axes : 000 008 107 degrees QTc Int : 448 ms Atrial flutter. with variable AV block. Nonspecific T wave abnormality Abnormal ECG When compared with ECG of 02-NOV-2018 02:14, (Unconfirmed) No significant change was found Unconfirmed Result
[2018-12-05] MEDS ORDERED: NITROGLYCERIN TOP ONE (10:22)
--- NOTE | 2018-12-05 12:02 | PROVIDER DOCUMENTATION ---
This chart was entered by Christiana Blackburn Scribe, acting as scribe for Curtis Bates MD. HPI-Chest Pain - General Chief Complaint: Chest Pain Stated Complaint: CHEST PAIN Time Seen by Provider: 12/05/18 09:24 Source: patient Allergies/Adverse Reactions: Patient Allergies Allergy/AdvReac Type Severity Reaction Status Date / Time latex Allergy ITCHING Verified 12/05/18 08:19 Penicillins Allergy ITCHING Verified 12/05/18 08:19 Home Medications: Home Medication List Medication Instructions Recorded Confirmed Last Taken Type Aspirin [Aspir-Low] 81 mg PO DAILY 09/04/16 11/02/18 02/07/18 History Amiodarone HCl 1 tab PO BID 11/02/18 11/02/18 Unknown History Apixaban [Eliquis] 1 tab PO BID 11/02/18 11/02/18 Unknown History Insulin Novolog 70/30 [Novolog Mix 10 unit SUBQ QPM 11/02/18 11/02/18 Unknown History 70/30] Insulin Novolog 70/30 [Novolog Mix 25 unit SUBQ QAM 11/02/18 11/02/18 Unknown History 70/30] Melatonin/Pyridoxine HCl (B6) 1 tab PO QHS PRN 11/02/18 11/02/18 Unknown History [Melatonin 3 mg Tablet] Furosemide [Lasix] 40 mg PO DAILY #30 tab 11/04/18 Unknown Rx Metoprolol Succinate E.r. [Toprol 25 mg PO DAILY #30 tab 11/04/18 Unknown Rx Xl] Quetiapine Fumarate [Seroquel] 25 mg PO QHS #30 tab 11/04/18 Unknown Rx - History of Present Illness-CP Nature of Presenting Problem: Patient is a 78 year old male who presents with chest pain and shortness of breath that started last night around 1800. Denies nausea and diaphoresis. Report having a Watchman's device placed on October [address] Kwong in [place]. States taking Plavix and Aspirin daily. History of AL. Location: reports: central Chest Pain Radiation: reports: no radiation Quality of Pain: reports: pressure Severity in ED: mild Onset/Duration: last night (1800) Timing: still present, intermittent, getting worse Context/Activities at Onset: reports: light activity Modifying Factors: improves with: nothing Associated Symptoms: reports: shortness of breath Nitro Today/Relief: 0.4 mg x 1, provided by ED, mild relief Prior Chest Pain/Cardiac Workup: reports: heart attack Similar Symptoms Previously?: Yes (present since last night ) Recently Seen Here or By Another Healthcare Provider: No Review of Systems - Adult - REVIEW OF SYSTEMS - ADULT Constitutional: reports: no symptoms reported. denies: chills, fever, fatique Eyes: reports: no symptoms reported Ears, Nose, Mouth & Throat: reports: no symptoms reported Cardiovascular: reports: see HPI, chest pain. denies: irregular heart rate, palpitations Respiratory: reports: see HPI, shortness of breath. denies: cough, wheezing Gastrointestinal: reports: no symptoms reported. denies: diarrhea, nausea, vomiting Genitourinary: reports: no symptoms reported Musculoskeletal: reports: no symptoms reported Integumentary: reports: no symptoms reported Neurological: reports: no symptoms reported Psychiatric: reports: no symptoms reported Endocrine: reports: no symptoms reported Hematologic/Lymphatic: reports: no symptoms reported Allergic/Immunologic: reports: no symptoms reported All Other Systems: Reviewed and Negative Past History - Adult - PAST MEDICAL HISTORY-ADULT Review of Records: reports: Nursing Assessment Review, Medications Reviewed, Social history reviewed & non-contributory. Major Childhood Illnesses: reports: history unknown Cardiovascular: reports: A-Fib, CAD, HTN, hyperlipidemia, AL Respiratory: reports: denies history Gastrointestinal: reports: denies history Obstetrical/Gynecological: reports: denies history Genitourinary: reports: denies history Musculoskeletal: reports: arthritis, other (neuropathy) Neurological: reports: CVA, stroke deficits Psychiatric: reports: denies history Endocrine/Immune: reports: Diabetes (insulin dependent) Other Conditions: reports: cataract/glaucoma - PRIOR SURGERIES/PROCEDURES Surgical/Procedure History: reports: CABG, other (cataract removal) - IMMUNIZATION STATUS Childhood Immunizations: See Nurse Assessment Flu Vaccine: See Nurse Assessment - FAMILY HISTORY Family History: reviewed, not pertinent - SOCIAL HISTORY Smoking: cigarettes (former) Substance Use: denies Living Situation: family Physical Exam-General - PHYSICAL EXAM-ADULT Initial Vital Signs Reviewed: Yes - CONSTITUTIONAL General Appearance: alert, no apparent distress. negative: lethargic, slow to respond - EYES Eyes: PERRL/EOMI, pink conjunctivae. negative: pale conjunctivae - HEAD, EARS, NOSE, MOUTH & THROAT HENMT: moist mucous membranes, normal ENT inspection. negative: angioedema, hearing deficit - NECK Neck: non-tender, normal inspection. negative: carotid bruit, limited range of motion - RESPIRATORY Respiratory: chest non-tender, lungs clear, normal breath sounds, other (well healed midsternal scar). negative: crackles, rales, rhonchi - CARDIOVASCULAR Cardiovascular: normal peripheral pulses, irregularly irregular. negative: tachycardia - GASTROINTESTINAL (ABDOMEN) Abdominal Exam: normal bowel sounds, non tender, soft. negative: guarding, rebound - MUSCULOSKELETAL Back Exam: normal inspection, no CVA tenderness, no vertebral tenderness. negative: ecchymosis Extremity: non-tender, normal inspection. negative: deformity, erythema - SKIN Integumentary: normal color, normal turgor, warm/dry. negative: cyanosis, diaphoresis, ecchymosis, erythema - NEUROLOGIC Neurologic: grossly normal. negative: aphasia, facial droop - PSYCHIATRIC Psych/Mental Status: normal mood/affect, oriented x 3. negative: paranoid, tearful - HEART Score HEART Score: History: Moderately Suspicious HEART Score: ECG: Normal HEART Score: Age: > or = 65 Years HEART Score: Risk Factors for Atherosclerotic Disease: > or = 3 Risk Factors or History of Atherosclerotic Disease HEART Score: Troponin: < or = Normal Limit Total HEART Score:: 5 Progress - PLAN OF CARE/RESULTS Progress/Plan/Lab Results: Vital Signs - 8 hr 12/05/18 08:12 12/05/18 09:02 12/05/18 10:02 Temperature 97.7 F Pulse Rate 85 84 78 Respiratory Rate 16 17 14 Blood Pressure 135/72 146/88 155/98 O2 Sat by Pulse Oximetry 96 94 L 99 12/05/18 10:03 12/05/18 10:32 12/05/18 11:02 Temperature Pulse Rate 82 76 86 Respiratory Rate 6 L 20 23 Blood Pressure 144/111 157/96 O2 Sat by Pulse Oximetry 100 99 98 Laboratory Results - last 24 hr 12/05/18 12/05/18 12/05/18 08:32 08:32 08:32 WBC 6.63 RBC 3.92 L Hgb 11.0 L Hct 33.1 L MCV 84.4 MCH 28.1 MCHC 33.2 RDW Std Deviation 16.4 H Plt Count 234 MPV 11.8 H Immature Gran % (Auto) 0.0 Neut % (Auto) 80.2 H Lymph % (Auto) 12.1 L [place] % (Auto) 5.3 Eos % (Auto) 1.8 Baso % (Auto) 0.6 Immature Gran # (Auto) 0.00 Neut # (Auto) 5.32 Lymph # (Auto) 0.80 L [place] # (Auto) 0.35 Eos # (Auto) 0.12 Baso # (Auto) 0.04 PT INR PTT (Actin FS) Sodium 138 Potassium 4.3 Chloride 100 Carbon Dioxide 26 Anion Gap 12 BUN 15 Creatinine 1.1 Estimated GFR/1.73 m2 > 60 BUN/Creatinine Ratio 14 Glucose 251 H Calculated Osmolality 285 Calcium 8.3 L Total Bilirubin 0.60 AST 25 ALT 30 Alkaline Phosphatase 85 Creatine Kinase 128 Troponin T Zkt-V-Trdwnrrudil Pept 3310 H Total Protein 6.6 Albumin 3.7 Globulin 2.9 Albumin/Globulin Ratio 1.3 12/05/18 12/05/18 08:32 08:32 WBC RBC Hgb Hct MCV MCH MCHC RDW Std Deviation Plt Count MPV Immature Gran % (Auto) Neut % (Auto) Lymph % (Auto) [place] % (Auto) Eos % (Auto) Baso % (Auto) Immature Gran # (Auto) Neut # (Auto) Lymph # (Auto) [place] # (Auto) Eos # (Auto) Baso # (Auto) PT 16.5 H INR 1.23 PTT (Actin FS) 33.0 Sodium Potassium Chloride Carbon Dioxide Anion Gap BUN Creatinine Estimated GFR/1.73 m2 BUN/Creatinine Ratio Glucose Calculated Osmolality Calcium Total Bilirubin AST ALT Alkaline Phosphatase Creatine Kinase Troponin T < 0.010 [id number] Pept Total Protein Albumin Globulin Albumin/Globulin Ratio Orders Category Date Time Status Cardiac Monitoring DIRECTED Care 12/05/18 08:20 Active Oxygen Therapy- ED Nursing DIRECTED Care 12/05/18 08:20 Active Saline Loc NOW Care 12/05/18 08:20 Active CHEST-2 VIEWS [RAD] Stat Exams 12/05/18 08:20 Completed CBC WITH ELECTRONIC DIFF [HEME] Stat Lab 12/05/18 08:32 Completed CK PROFILE [SP CHEM] Stat Lab 12/05/18 08:32 Completed CK PROFILE [SP CHEM] Stat Lab 12/05/18 11:55 Uncollected COMPREHENSIVE METABOLIC PANEL [CHEM] Stat Lab 12/05/18 08:32 Completed PRO B-NATRIURETIC PEPTIDE Stat Lab 12/05/18 08:32 Completed PROTIME WITH INR [COAG] Stat Lab 12/05/18 08:32 Completed PTT [COAG] Stat Lab 12/05/18 08:32 Completed TROPONIN T Stat Lab 12/05/18 08:32 Completed TROPONIN T Stat Lab 12/05/18 11:55 Uncollected Nitroglycerin Med 12/05/18 10:22 Discontinued 1 inch TOP NOW ONE Nitroglycerin Sl [Nitroglycerin] Med 12/05/18 09:34 Discontinued 0.4 mg SL NOW ONE Nitroglycerin Sl [Nitroglycerin] Med 12/05/18 10:22 Discontinued 0.4 mg SL NOW ONE CP/SOB/Palp >45 yrs of Age Stat Oth 12/05/18 08:20 Ordered EKG [EKG] Stat Ther 12/05/18 08:20 Draft Transfer/Admit Order [TRANSFER] Routine Transfer 12/05/18 11:55 Ordered Result Diagrams: 12/05/18 08:32 12/05/18 08:32 - REASSESSMENT Reassessment #1 Time Reassessed: 10:17 Status: improving (patient received nitro and chest pain improved. systolic pressure dropped from 170 to 143.) - EKG 1 Time of EKG reading by physician:: 07:58 EKG Read and Signed by:: Curtis Bates EKG Interpretation (*Must complete 3 of following elements*): Abnormal Rate: 83 Rhythm: atrial flutter with variable AV block Comments: nonspecific T wave abnormality. - XRAY 1 XRAY Study: Chest Impression: See EMR Report ( EXAM: CHEST-2 VIEWS HISTORY: CP TECHNIQUE: Chest two views COMPARISON: 11/04/2018 FINDINGS: The lungs are well expanded. The heart is not enlarged. Sternal wires are present. The vessels are not distended. There are no infiltrates. There are tiny pleural effusions. IMPRESSION: Development of tiny pleural effusions. Electronically signed by Nils Barry 12/05/2018 9:07 AM 12/05/18 09 Interpreting Physician: Nils Barry MD Dictated Date/Time: 12/05/18906 cc: Curtis Bates MD; Anatoliy Wihttington MD) - CONSULTS/PCP/HOSPITALIST Notification #1 *Consult/PCP/Hospitalist*: DERIC [place] for Hospitalist Time Discussed: 11:38 (Dr. García accepted admit) Reason/Comments: Dr. Bates consulted with Darion about patient. Consult Disposition: Will see in ED, Admit Departure - Departure Date of Disposition Decision: 12/05/18 Time of Disposition Decision: 11:53 DIAGNOSIS: Chest pain Disposition: ADMITTED INPATIENT 09 Certified Medical Emergency: Emergent Condition: Stable Referrals and Follow-Ups: Anatoliy Whittington MD [Primary Care Provider] - - Critical Care Note This patient required my direct & personal management of CC.: No Attestation - Physician/ HELEN Attestation The physician spent face to face time with patient:: Yes Advanced Practice Provider documentation review:: Supervising physician onsite and consulted in the evaluation and care of this patient. The physician did have a face to face encounter with the patient. This chart was documented by the indicated scribe, (Christiana Blackburn Scribe) and accurately reflects the services I performed and decisions made by me, Curtis Bates MD, as attested by the provider's signature.
[2018-12-05] MEDS ORDERED: LASIX IV ONE (13:06)
--- NOTE | 2018-12-05 14:04 | HISTORY AND PHYSICAL ---
PRIMARY CARE PHYSICIAN: Dr. Anatoliy Roman. STOCK CHASER: Dr[facility] [place], [place]. CHIEF COMPLAINT: Chest pain. HISTORY OF PRESENT ILLNESS: Mr. Byrd is a 78-year-old -[place] male who was recently discharged from our service last month for suspected stroke which was, ultimately, negative as he had a negative head CT for acute stroke, and carotid Doppler studies were negative for hemodynamically significant obstructions. He was in his normal state of health when he started experiencing chest pain at rest last night. He describes mid sternal nonradiating chest pain associated with shortness of breath but no nausea, vomiting or diaphoresis. The pain lasted throughout the night into the morning and was relieved when he came to the ER and had sublingual nitroglycerin. He has not had any fever or chills, cough or congestion. He denies any lower extremity edema or orthopnea. He denies exertional chest pain. In the ER he had an EKG done which did show stable atrial fibrillation at a rate of 83 beats a minute. Laboratory data are unremarkable. Troponin is negative. ProBNP 3310. He continues to be pain-free but given his history of coronary disease, atrial fibrillation, status post Watchman procedure, we are going to put him in for observation and consult cardiology. PAST MEDICAL HISTORY: 1. CAD, status post CABG in 2013. He had HERNANDEZ to LAD, vein graft to 2nd diagonal, vein graft to OM. He did have a nuclear scan in January,, which showed normal perfusion and EF of 52%. 2. Chronic atrial fibrillation. He had Watchman procedure done at [facility] around 1 1/2 to 2 months ago. He is no longer on anticoagulation. 3. Systolic heart failure. EF 35% by JESSICA in [place]; 40-45% per echo done here in January,. 4. Diabetes mellitus. 5. GERD. 6. Hypertension. 7. Dementia. 8. Hyperlipidemia. 9. Report of thoracic aortic aneurysm, diameter unknown. PAST SURGICAL HISTORY: He has had a recent Watchman procedure and CABG. He also had cataract removal and left hand surgery. SOCIAL HISTORY: He quit smoking some time ago. No alcohol, tobacco or drug use. His is at the bedside. FAMILY HISTORY: Noncontributory. REVIEW OF SYSTEMS: A 14-point review of systems was obtained and found to be negative with the exception of the HPI. ALLERGIES: Latex and penicillin. HOME MEDICATIONS: Have not yet been compiled by the nursing staff. These will be updated as they become available. PHYSICAL EXAMINATION: VITAL SIGNS: Blood pressure 151/92; heart rate 73; respiratory rate 18; O2 sat 100% on room air; temperature 97.7. GENERAL: This is an elderly-appearing somewhat disheveled 78-year-old - [place] male lying in the hospital bed in no acute distress. NEUROLOGICAL: The exam is nonfocal. He follows commands without focal deficits. HEENT: Head is atraumatic and normocephalic. His pupils are equal, round and reactive to light. Oral mucosa is moist. NECK: Trachea is midline. There is no JVD. CHEST: Decreased at the bases with faint crackles. CARDIOVASCULAR: Irregular rate and rhythm. S1 and S2 are noted. There are no appreciable murmurs. GASTROINTESTINAL: Slight epigastric retrosternal tenderness to palpation. Abdomen is soft. Bowel sounds are active. There is no rigidity. EXTREMITIES: No edema. Pulses 1+ bilaterally. DIAGNOSTIC DATA: Chest x-ray shows development of tiny bilateral pleural effusions. WBC 6.63, hemoglobin 11, hematocrit 33.1, platelet count 334,000, INR 1.23, sodium 138, potassium 4.3, chloride 100, C02 26, anion gap 12, BUN 15, creatinine 1.1, glucose 251, calcium 8.3. LFTs negative. Troponin negative. ProBNP 3310. Albumin 3.7. EKG atrial fibrillation, nonspecific ST changes. ASSESSMENT AND PLAN: 1. Chest pain: Atypical bordering on noncardiac in nature; however, given his history will consult cardiology for any ischemic evaluation. Will trend his cardiac enzymes, make sure he is on aspirin and continue home meds as appropriate. 3. Chronic atrial fibrillation: Stable. The patient has had a Watchman procedure, thus anticoagulation is no longer needed. 4. Diabetes mellitus: Will continue home medications once reconciled, pattern sugars, sliding scale insulin and make sure hemoglobin A1C is up to date. 5. Hypertension and hyperlipidemia: Stable, continue home meds. 6. History of systolic heart failure: He seems to be euvolemic at this time; however, he does have tiny pleural effusions and faint crackles bilaterally. We will go ahead and give him 20 mg of IV Lasix now. 7. DVT prophylaxis with SCDs. Further recommendations to follow. This is an observation admission. Dictated by DERIC Espino for Jorgito García MD cc: DERIC Espino MD I have seen and examined Mr Byrd today. He presents with chest pain with atypical features. He has h/o CAD s/p CABG and CHF. Will continue to trend his cardiac biomarkers and consult cardiology. I agree with the above HPI and the plan reflects my opinion discussed with the LONG LINE TEAMSTER. YOVANY
[2018-12-05] MEDS: HUMULIN R SUBQ SCH ×2 (17:57→21:57)
--- NOTE | 2018-12-05 18:37 | CARDIOLOGY CONSULTATION ---
DATE: 12/05/2018 This is a consultation requested by hospitalist service. REASON: Chest pain, dyspnea. CHIEF COMPLAINT: Dyspnea and chest discomfort. HISTORY: Mr. Byrd is a 78-year-old gentleman who is known to our service. Dr. Barb Price is the primary vice president media relations. The patient presented to the ER today at about 8 o'clock in the morning, complaining of having sudden onset of discomfort in the center of the chest at about 5 p.m. in the afternoon on December 04. He was just sitting down. At night, the discomfort persisted, and in addition, he developed dyspnea. He just could not rest, and he was basically up on his chair through the night. Eventually, he decided to seek evaluation in the emergency room. They did an electrocardiogram at 7:58 in the morning that shows atrial fibrillation, rate 83 beats per minute with a nonspecific T-wave abnormality. A chest x-ray was also done. It has been reported by Radiology as showing development of tiny pleural effusions. The patient has been given oxygen, Lasix, and nitroglycerin, and he is feeling better now. I am seeing him at about 4 p.m. He is resting comfortably. The patient was admitted to this hospital just about a month ago on November 02 and discharged on the at that time with presentation consistent with a possible stroke. Dr. Erik Deal saw him in consultation. He was also short of breath. At any rate, they stabilized the patient, and he had been basically doing fine. He had noted swelling previously and at this time, the swelling is not as bad as it was. PAST MEDICAL HISTORY: His past medical history is really quite extensive. He has been known to have atrial fibrillation for many years. He has suffered a previous stroke with right-sided weakness. He has long-term hypertension. He has diabetes mellitus type 2 for many years. He had coronary heart disease and underwent a coronary bypass procedure by Dr. Raza Ayala in [place] on 10/08/2013, including mammary graft to LAD, vein graft to diagonal, and vein graft to marginal branch. He has suffered a myocardial infarction in 1990. He has permanent atrial fibrillation, and recently, he underwent a deployment of a Watchman device to prevent strokes. He has had hyperlipidemia, and he had acid reflux. SURGICAL HISTORY: In addition to the bypass is really only positive for a prior left eye surgery. FAMILY HISTORY: Father, mother, brother, and sister had coronary heart disease. SOCIAL HISTORY: He is . He has children living in [place]. He retired from [employer] after 37 years. He lived in [place] for 41 years. He quit smoking in 1990. He is not a drinker. DIAGNOSTIC STUDIES: His most recent echocardiogram that we have on record would be from a recent hospital admission to [facility] that showed ejection fraction 35%. At that time, he underwent a cardioversion. He has had a Lexiscan myocardial perfusion stress test in January 2018 that showed normal ejection fraction 52%. The last echo that we did here at [facility] 01/28/2018 showed moderate decreased left ventricular systolic function 40% to 45% with a pulmonary pressure of 31 to 36 mmHg, mild degree of aortic regurgitation and aortic sclerosis with a mild degree of tricuspid and mitral regurgitation. HOME MEDICATIONS: At this time included the following: He is on amiodarone 200 twice a day, aspirin 81 daily, clopidogrel 75 daily, furosemide 40 mg daily, insulin NPH 70/30 of 100 units twice a day, metoprolol-XL 25 daily, Protonix 40 mg daily, Seroquel 25 at bedtime. REVIEW OF SYSTEMS: Otherwise noncontributory, besides what I have already reported. He is really chronically short of breath with exertion. He has tendency to swell up. He has had atrial fibrillation for many years. PHYSICAL EXAMINATION: Blood pressure 129/100, temperature 97.4 degrees, pulse 77, respirations 18. He is awake, alert, in no distress. He is in good mood.HEENT: Unremarkable. Chest sounds clear to auscultation and percussion. Heart sounds are irregularly irregular. He has a prominent left sternal border systolic murmur about 2/6 to 3/6 and I believe there is a diastolic murmur also over left sternal border. Abdomen is soft, nontender. No masses. No hepatomegaly. Extremities showed decreased pulses. No peripheral edema. Neurological: Nonfocal. Moves 4 extremities. LABORATORY DATA: His sodium 138, potassium 4.3, BUN and creatinine are normal. ProBNP is 3310. Two troponins were checked and they are negative. His white cell count 6630, hemoglobin 11 g. IMPRESSION AND PLAN: 1. Patient who has recurrent congestive heart failure. This appears to be systolic and diastolic. 2. History of severe coronary heart disease, prior CABG. 3. Permanent atrial fibrillation. 4. Valvular heart disease.Aortic regurgitation? 5. Long-term hypertension. 6. Long-term diabetes mellitus, type 2. 7. Former smoker. 8. Angina Pectoris, question of being unstable. RECOMMENDATION: At this time, we will try to make adjustments to his diuretics and vasodilators. We will probably put him on a higher level of PRABHAKAR inhibitors. Per Med list, he is not on any. He is only allergic to latex and penicillin. He should be able to tolerate PRABHAKAR inhibitors. We will go ahead and do that, put him on ramipril 5 twice a day, and continue furosemide, and we will see how he does. cc: Gibran Monteiro MD MTDD
[2018-12-05] MEDS: ALTACE PO SCH (21:57)
[2018-12-06] MEDS: HUMULIN R SUBQ SCH ×4 (07:00→20:52)
[2018-12-06 08:50] LABS: HEMATOCRIT 34.1 % (42.0-52.0); HEMOGLOBIN 11.3 g/dL (14.0-18.0); MCH 27.7 PG (27-31); MCHC 33.1 g/dL (33-37); MCV 83.6 FL (81-99); MPV 11.5 FL (7.4-10.4); RBC 4.08 XMIL (4.7-6.1); RDW 16.4 % (11.5-14.5); WBC 8.88 X1000 (4.8-10.8)
[2018-12-06] MEDS: ASPIRIN PO SCH (08:55)
[2018-12-06] MEDS: ALTACE PO SCH ×2 (08:55→20:55)
[2018-12-06] MEDS: LASIX IV SCH (08:56)
[2018-12-06 09:26] LABS: AGAP 13; BUN 14 mg/dL (8-22); CALCIUM 8.8 mg/dL (8.8-10.2); CHLORIDE 100 mmol/L (98-107); COSMO 279; ESTIMATED GFR > 60; GLUCOSE 115 mg/dL (70-104); POTASSIUM 3.6 mmol/L (3.5-5.1); SODIUM 139 mmol/L (136-145); TCO2 26 mmol/L (25-35)
--- NOTE | 2018-12-06 09:28 | CARDIOLOGY PROGRESS NOTE ---
DATE: 12/06/2018 CHIEF COMPLAINT: Shortness of breath, irregular heart beat. SUBJECTIVE: Mr. Byrd is feeling much better today. He has been diuresing. He has been going to the bathroom back and forth. He does not feel dizzy. He does not have any chest pain. He wishes to go home. PHYSICAL EXAMINATION: VITAL SIGNS: Blood pressure 154/87, temperature 97.8 degrees, pulse 84, respirations 20. GENERAL: He is awake, alert, oriented. No distress. HEENT: Unremarkable. CHEST: Sounds clear to auscultation and percussion. HEART: Sounds irregularly irregular. The heart murmurs today are not as apparent as they were yesterday. ABDOMEN: Nontender. EXTREMITIES: Showed no significant edema. NEUROLOGICAL: Follows commands, moves 4 extremities. IMPRESSION: 1. Patient who presented with what appears to be angina pectoris, possibly unstable. This has resolved. 2. Coronary heart disease, previous coronary bypass surgery. 3. Persistent atrial fibrillation or permanent atrial fibrillation. 4. Valvular heart disease. 5. Diabetes mellitus type 2. 6. Hypertension. RECOMMENDATIONS: At this time, I would suggest to continue present course of action. Patient is on furosemide. We have added Ramipril. I will probably minimize the use of aspirin to just a baby dose. I will probably suggest to observe him 1 more day, recheck his chemistries in the morning, and if everything is fine, he can probably go home. I would be happy to arrange for a followup; however, he normally follows with Dr. Brandy Price who has been his doctor for may years and he wishes to continue seeing him. cc: Gibran Monteiro MD [facility] LANGONE HEALTHDerek
--- NOTE | 2018-12-06 14:28 | PROGRESS NOTE ---
DATE: 12/06/2018 SUBJECTIVE: This morning Mr. Byrd refers to be doing a lot better. No more chest pain. The patient has been evaluated by Cardiology. OBJECTIVELY: Vital: Blood pressure is 144/95, pulse 84, respirations 20, temperature 97.6 degrees. General: Mr. Byrd is a 78-year-old male. He is in bed in no distress. HEENT: Mucosa is pink and moist. Anicteric. Acyanotic. Neck: Supple. Chest: Clear to auscultation. No crepitations. No rhonchi. Cardiovascular: Regular rate and rhythm. Abdomen: Soft. Extremities: No pedal edema. MANAGER OF ENVIRONMENTAL SERVICES: MANAGER OF ENVIRONMENTAL SERVICES patient is awake, alert, oriented. Musculoskeletal: There is an old sternotomy scar on the anterior chest wall from a previous CABG. LABORATORY DATA: WBC is 8.88, hemoglobin is 11.3, platelet count of 235,000. Chemistry is also reviewed, completely normal. Lipid panel is unremarkable. CURRENT MEDICATIONS: Have all been reviewed. He has been started on Ramipril this morning. ASSESSMENT: 1. Atypical chest pain on presentation, improved. So far troponin, cardiac markers and EKG have been unremarkable. Cardiology is on board. 2. Chronic atrial fibrillation, currently rate controlled. 3. The patient has had Watchman procedure done in [place] recently. 4. Diabetes mellitus, controlled. 5. History of systolic heart failure. Currently seems to be euvolemic. In general Mr. Byrd seems to be doing fairly okay. Chest discomfort has completely resolved. Cardiac biomarkers have been trended twice and have been unremarkable. Will be pending further recommendations from Cardiology. Echocardiogram was done this morning. cc: Jorgito García MD MTDD
--- NOTE | 2018-12-06 15:46 | ECHO REPORT ---
ORDER DATE: 12/06/2018 INTERPRETING PHYSICIAN: Dr. Monteiro REQUESTING PHYSICIAN: CLINICAL INDICATIONS: This is a 78-year-old male with CHF. M-MODE MEASUREMENTS: Right ventricle: cm. Left ventricle end diastole: 5.3 cm. Left ventricle end systole: 4.1 cm. Posterior wall: 1.3 cm. Interventricular septum: 1.3 cm. Left atrium: Dilated. Aortic root: 4.8 cm. SUMMARY OF 2-DIMENSIONAL IMAGIN. Left ventricular function is moderately impaired. Ejection fraction is estimated at 40%. 2. There may be some wall motion abnormality involving the inferior wall. 3. The atria are enlarged. 4. There is a small pericardial effusion. 5. Mitral valve shows a severe degree of regurgitation. 6. The patient is in atrial fibrillation. Diastolic function could not be evaluated. 7. Aortic valve shows mild to moderate degree of regurgitation. 8. Pulmonic valve shows moderate to severe degree of regurgitation. 9. The tricuspid valve shows severe degree of regurgitation. 10.The pulmonary pressure is estimated at 65 mmHg. 11.There is no evidence of mass or thrombus. Clinical correlation is recommended. cc: Gibran Monteiro MD
[2018-12-06] MEDS ORDERED: ZOFRAN IV PRN (18:23)
[2018-12-07] MEDS: HUMULIN R SUBQ SCH (05:53)
[2018-12-07 07:47] VITALS: BP 149/82
[2018-12-07] MEDS: ALTACE PO SCH (10:54)
[2018-12-07] MEDS: ASPIRIN PO SCH (10:55)
[2018-12-07] MEDS: LASIX IV SCH (10:55)
--- NOTE | 2018-12-07 21:29 | DISCHARGE SUMMARY ---
ADMISSION DATE: 11/18/2018 DISCHARGE DATE: 12/07/2018 DISPOSITION: Home. FOLLOW-UP: 1. Dr. Whittington. 2. Dr. Price in [place]. CONSULTATIONS DURING THIS ADMISSION: Cardiology was consulted. The patient was seen by Dr. Monteiro. INVASIVE PROCEDURES DONE DURING THIS ADMISSION: 1. None. IMAGING STUDIES OF SIGNIFICANCE: 1. A chest x-ray did show development of tiny pleural effusions. 2. A limited echocardiogram did show an ejection fraction of 40%, moderate to severe degree of pulmonary valve regurgitation, and tricuspid valve showing severe degree of regurgitation. Pulmonary pressure is estimated at 65 mmHg. ADMISSION DIAGNOSES: 1. Atypical chest pain. 2. Chronic atrial fibrillation. 3. Diabetes mellitus. 4. Hypertension. 5. Systolic heart failure. DIAGNOSES AT THE TIME OF DISCHARGE: 1. Atypical chest pain with unremarkable EKG and cardiac markers. This is thought to be probably noncardiac in origin. 2. Chronic atrial fibrillation, currently rate controlled. 3. Diabetes mellitus. 4. History of systolic heart failure with ejection fraction of 40%. The patient is currently euvolemic. We started him back on his medications. 5. Status post Watchman procedure for chronic atrial fibrillation. 6. History of coronary artery disease status post coronary artery bypass graft. 7. Hypertension, stable. 8. Diabetes mellitus on insulin therapy. DISCHARGE MEDS: 1. Aspirin 81 mg daily. 2. Amiodarone 200 b.i.d. 3. Lasix 40 mg daily. 4. Quetiapine 25 mg at bedtime. 5. Metoprolol 25 mg daily. 6. Clopidogrel 75 mg daily. 7. Pantoprazole 40 mg daily. 8. Novolin 70/30, 25 units b.i.d. 9. Ramipril 5 mg b.i.d. PRESENTING COMPLAINT: Chest pain. HISTORY OF PRESENT COMPLAINT: Mr. Byrd is a 78-year-old gentleman who is known to have coronary artery disease status post CABG, systolic heart failure, and chronic atrial fibrillation, status post Watchman procedure recently. He came to the emergency department because of chest discomfort. Because of his history and high heart score, patient was admitted for cardiac risk stratification. HOSPITAL COURSE: Mr. Byrd' cardiac biomarkers were trended throughout the hospital course and were negative. EKG also was unremarkable for any acute evidence of ischemia. Cardiology was consulted. The patient was seen by Dr. Monteiro. Echocardiogram was done which showed pretty much the same ejection fraction about a year ago. He is currently asymptomatic of any chest pain, and he is euvolemic. Ramipril was added to his current medications. The patient is clinically stable and is going to be discharged. He will follow up with [facility] [place] and also with his primary care doctor. All the discharge instructions have been discussed with Mr. Byrd, and he voiced understanding. Time spent for discharge is 37 minutes. cc: MD Barb Yuan Chi, MD Michael C. Donham, MD
== END 2018-12-07 13:31 | disposition home or self-care (01) | DRG 313 ==
LOC: ED 07:53 → EDIPHOLD 12:09 → INTOOBSV 12:09 → 3N 16:29
PROVIDERS: ATTEND Internal Medicine
CPT/HCPCS: 71020; 71046; 80048; 80053; 80061; 82550; 82948; 83721; 83880; 84484; 85025; 85027; 85610; 85730; 93005; 93306; 94761; 96374; 99285; A9270; C8924; J1940; J2405; Q9957; XXXXX

== ENCOUNTER 2019-02-07 12:59 | Observation (INO) ==
[2019-02-07] MEDS ORDERED: ASPIRIN PO ONE (14:04)
--- NOTE | 2019-02-07 14:12 | PROVIDER DOCUMENTATION ---
HPI-Chest Pain - General Chief Complaint: Chest Pain Stated Complaint: CP,LEG PAIN Time Seen by Provider: 02/07/19 14:03 Allergies/Adverse Reactions: Patient Allergies Allergy/AdvReac Type Severity Reaction Status Date / Time latex Allergy ITCHING Verified 02/07/19 17:10 Penicillins Allergy ITCHING Verified 02/07/19 17:10 Home Medications: Home Medication List Medication Instructions Recorded Confirmed Last Taken Type Aspirin [Aspir-Low] 81 mg PO DAILY 09/04/16 12/05/18 02/07/18 History Amiodarone HCl 1 tab PO BID 11/02/18 12/05/18 Unknown History Furosemide [Lasix] 40 mg PO DAILY #30 tab 11/04/18 12/05/18 Unknown Rx Metoprolol Succinate E.r. [Toprol 25 mg PO DAILY #30 tab 11/04/18 12/05/18 Unknown Rx Xl] Quetiapine Fumarate [Seroquel] 25 mg PO QHS #30 tab 11/04/18 12/05/18 Unknown Rx Clopidogrel [Plavix] 75 mg PO DAILY 12/05/18 12/05/18 Unknown History Pantoprazole [Protonix] 40 mg PO DAILY@0700 12/05/18 12/05/18 Unknown History Insulin NPH Hum/Reg Insulin Hm 25 unit SQ BID #0 12/07/18 12/05/18 Unknown Rx [Novolin 70-30 Flexpen] RAMIpril [Altace] 5 mg PO BID #60 cap 12/07/18 Unknown Rx - History of Present Illness-CP Nature of Presenting Problem: reports having chest pain since last night at the epigastric area. dull, nonraditing, +nauseous, sob, which lasted till this morning. has resolved now while awaiting to be seen. . no vomiting, diaphoress, history of DM2 on insulin, HTn, significant history of opened heart surgery 3 years ago, Afib, all on medicine. seen Dr. Price cardiolgoist , last procedure done was 2 mmonth ago, which he will have an appt on sunday to discuss the findings. denied fevre, chills, vomiting, diarrhea, wt gain. but his lower extremities swelling Review of Systems - Adult - REVIEW OF SYSTEMS - ADULT Constitutional: reports: no symptoms reported Eyes: reports: no symptoms reported Ears, Nose, Mouth & Throat: reports: no symptoms reported Cardiovascular: reports: no symptoms reported Respiratory: reports: no symptoms reported Gastrointestinal: reports: no symptoms reported Genitourinary: reports: no symptoms reported Musculoskeletal: reports: no symptoms reported Integumentary: reports: no symptoms reported Neurological: reports: no symptoms reported Psychiatric: reports: no symptoms reported Endocrine: reports: no symptoms reported Hematologic/Lymphatic: reports: no symptoms reported Allergic/Immunologic: reports: no symptoms reported All Other Systems: Reviewed and Negative Past History - Adult - PAST MEDICAL HISTORY-ADULT Review of Records: reports: Old Records Reviewed Major Childhood Illnesses: reports: history unknown Cardiovascular: reports: A-Fib, CAD, HTN Respiratory: reports: denies history Gastrointestinal: reports: denies history Obstetrical/Gynecological: reports: denies history Genitourinary: reports: denies history Musculoskeletal: reports: arthritis, other (neuropathy) Neurological: reports: CVA, stroke deficits Psychiatric: reports: denies history Endocrine/Immune: reports: Diabetes (insulin dependent) Other Conditions: reports: cataract/glaucoma - PRIOR SURGERIES/PROCEDURES Surgical/Procedure History: reports: CABG, other (cataract removal) - IMMUNIZATION STATUS Childhood Immunizations: See Nurse Assessment Flu Vaccine: See Nurse Assessment - FAMILY HISTORY Family History: reviewed, not pertinent Physical Exam-General - PHYSICAL EXAM-ADULT Initial Vital Signs Reviewed: Yes - CONSTITUTIONAL General Appearance: appears well, alert, no apparent distress - EYES Eyes: PERRL/EOMI, pink conjunctivae - HEAD, EARS, NOSE, MOUTH & THROAT HENMT: normocephalic/atraumatic, moist mucous membranes, normal ENT inspection - NECK Neck: non-tender, full range of motion - RESPIRATORY Respiratory: chest non-tender, lungs clear - CARDIOVASCULAR Cardiovascular: irregularly irregular, other (edema b/l 1+) - GASTROINTESTINAL (ABDOMEN) Abdominal Exam: normal bowel sounds, non tender, other (epigastric tenderness) - MUSCULOSKELETAL Back Exam: normal inspection, no CVA tenderness, no vertebral tenderness Extremity: normal range of motion, non-tender, normal gait - SKIN Integumentary: normal color, normal turgor, warm/dry - NEUROLOGIC Neurologic: grossly normal - PSYCHIATRIC Psych/Mental Status: normal mood/affect, normal thought content, normal thought process, oriented x 3 - HEART Score HEART Score: History: Moderately Suspicious HEART Score: ECG: Non-Specific Repolarization Disturbance/LBBB/PM HEART Score: Age: > or = 65 Years HEART Score: Risk Factors for Atherosclerotic Disease: > or = 3 Risk Factors or History of Atherosclerotic Disease HEART Score: Troponin: < or = Normal Limit Total HEART Score:: 6 Progress - PLAN OF CARE/RESULTS Progress/Plan/Lab Results: Vital Signs - 8 hr 02/07/19 13:26 02/07/19 14:04 02/07/19 14:30 Temperature 98.4 F Pulse Rate 82 76 71 Respiratory Rate 18 12 24 Blood Pressure 131/69 131/75 O2 Sat by Pulse Oximetry 98 97 100 Laboratory Results - last 24 hr 02/07/19 02/07/19 02/07/19 14:10 14:10 14:10 WBC 8.54 RBC 4.01 L Hgb 10.9 L Hct 33.3 L MCV 83.0 MCH 27.2 MCHC 32.7 L RDW Std Deviation 20.5 H Plt Count 214 MPV 11.5 H Neut % (Auto) 77.4 H Lymph % (Auto) 12.5 L Loving % (Auto) 6.7 Eos % (Auto) 3.2 Baso % (Auto) 0.2 Neut # (Auto) 6.61 H Lymph # (Auto) 1.07 L Loving # (Auto) 0.57 Eos # (Auto) 0.27 Baso # (Auto) 0.02 PT INR PTT (Actin FS) Sodium 138 Potassium 4.3 Chloride 101 Carbon Dioxide 26 Anion Gap 11 BUN 13 Creatinine 0.9 Estimated GFR/1.73 m2 > 60 BUN/Creatinine Ratio 14 Glucose 171 H Calculated Osmolality 280 Calcium 8.9 Total Bilirubin 0.45 AST 31 ALT 30 Alkaline Phosphatase 89 Creatine Kinase 210 H Creatine Kinase Index 3.9 H CK-MB (CK-2) 8.23 H Troponin T Rag-O-Sdutyhcwfzo Pept 2289 H Total Protein 6.9 Albumin 4.0 Globulin 2.9 Albumin/Globulin Ratio 1.4 02/07/19 02/07/19 02/07/19 14:10 14:10 16:00 WBC RBC Hgb Hct MCV MCH MCHC RDW Std Deviation Plt Count MPV Neut % (Auto) Lymph % (Auto) Loving % (Auto) Eos % (Auto) Baso % (Auto) Neut # (Auto) Lymph # (Auto) Loving # (Auto) Eos # (Auto) Baso # (Auto) PT 14.9 INR 1.08 PTT (Actin FS) 33.9 Sodium Potassium Chloride Carbon Dioxide Anion Gap BUN Creatinine Estimated GFR/1.73 m2 BUN/Creatinine Ratio Glucose Calculated Osmolality Calcium Total Bilirubin AST ALT Alkaline Phosphatase Creatine Kinase 200 Creatine Kinase Index CK-MB (CK-2) Troponin T < 0.010 Nrt-Z-Gtklovmkdjw Pept Total Protein Albumin Globulin Albumin/Globulin Ratio 02/07/19 16:00 WBC RBC Hgb Hct MCV MCH MCHC RDW Std Deviation Plt Count MPV Neut % (Auto) Lymph % (Auto) Loving % (Auto) Eos % (Auto) Baso % (Auto) Neut # (Auto) Lymph # (Auto) Loving # (Auto) Eos # (Auto) Baso # (Auto) PT INR PTT (Actin FS) Sodium Potassium Chloride Carbon Dioxide Anion Gap BUN Creatinine Estimated GFR/1.73 m2 BUN/Creatinine Ratio Glucose Calculated Osmolality Calcium Total Bilirubin AST ALT Alkaline Phosphatase Creatine Kinase Creatine Kinase Index CK-MB (CK-2) Troponin T < 0.010 Ead-C-Deesiihprhz Pept Total Protein Albumin Globulin Albumin/Globulin Ratio Orders Category Date Time Status Cardiac Monitoring DIRECTED Care 02/07/19 14:04 Active Oxygen Therapy- ED Nursing DIRECTED Care 02/07/19 14:04 Active Saline Loc NOW Care 02/07/19 14:04 Active CHEST-2 VIEWS [RAD] Stat Exams 02/07/19 14:04 Completed CBC WITH ELECTRONIC DIFF [HEME] Stat Lab 02/07/19 14:10 Completed CK PROFILE [SP CHEM] Stat Lab 02/07/19 14:10 Completed CK PROFILE [SP CHEM] Stat Lab 02/07/19 16:00 Completed COMPREHENSIVE METABOLIC PANEL [CHEM] Stat Lab 02/07/19 14:10 Completed PRO B-NATRIURETIC PEPTIDE Stat Lab 02/07/19 14:10 Completed PROTIME WITH INR [COAG] Stat Lab 02/07/19 14:10 Completed PTT [COAG] Stat Lab 02/07/19 14:10 Completed TROPONIN T Stat Lab 02/07/19 14:10 Completed TROPONIN T Stat Lab 02/07/19 16:00 Completed Aspirin Med 02/07/19 14:04 Discontinued 325 mg PO NOW ONE Furosemide [Lasix] Med 02/07/19 15:21 Discontinued 40 mg IV NOW ONE CP/SOB/Palp >45 yrs of Age Stat Oth 02/07/19 14:04 Ordered EKG [EKG] Stat Ther 02/07/19 14:04 Draft EKG [EKG] Stat Ther 02/07/19 15:23 Ordered Result Diagrams: 02/07/19 14:10 02/07/19 14:10 - EKG 1 Time of EKG reading by physician:: 16:28 EKG Read and Signed by:: Lit Escobar EKG Interpretation (*Must complete 3 of following elements*): Abnormal Rate: 77 Rhythm: afib QRS: normal Prior EKG Comparison: unchanged from prior - CONSULTS/PCP/HOSPITALIST Notification #1 *Consult/PCP/Hospitalist*: Dr. García Time Discussed: 17:00 Consult Disposition: Will see in ED, Admit Departure - Departure Date of Disposition Decision: 02/07/19 Time of Disposition Decision: 16:27 DIAGNOSIS: ACS (acute coronary syndrome), CHF (congestive heart failure) Disposition: ADMITTED INPATIENT 09 Certified Medical Emergency: Emergent Condition: Stable Referrals and Follow-Ups: Anatoliy Whittington MD [Primary Care Provider] - - Critical Care Note This patient required my direct & personal management of CC.: No Attestation - Physician/ HELEN Attestation The physician spent face to face time with patient:: Yes Advanced Practice Provider documentation review:: Supervising physician onsite and consulted in the evaluation and care of this patient. The physician did have a face to face encounter with the patient.
--- NOTE | 2019-02-07 14:22 | EKG Report ---
Test Performed on : 02/07/2019 1:20:27 PM Test Reason : cp Blood Pressure : / mmHG Vent. Rate : 077 BPM Atrial Rate : 085 BPM P-R Int : 000 ms QRS Dur : 074 ms QT Int : 386 ms P-R-T Axes : 000 000 091 degrees QTc Int : 436 ms Atrial fibrillation. Nonspecific T wave abnormality Abnormal ECG When compared with ECG of 28-JAN-2019 06:41, Atrial fibrillation. has replaced Atrial flutter. Vent. rate has decreased BY 54 BPM Unconfirmed Result
--- NOTE | 2019-02-07 14:36 | Diag Imaging Result Doc PS360 ---
EXAM: CHEST-2 VIEWS HISTORY: cp TECHNIQUE: Chest two views COMPARISON: 01/28/2019 FINDINGS: The lungs are well expanded. The heart is not enlarged. There are sternal wires. The vessels are not distended. There are no infiltrates. Small pleural effusions. IMPRESSION: Small pleural effusions. Electronically signed by Nils Barry 02/07/2019 2:33 PM
[2019-02-07 14:39] LABS: BASO# 0.02 X1000 (0.0-0.2); BASO% 0.2 % (0.0-0.8); EOS# 0.27 X1000 (0.0-0.7); EOS% 3.2 % (0.0-10.0); HEMATOCRIT 33.3 % (42.0-52.0); HEMOGLOBIN 10.9 g/dL (14.0-18.0); LYMPH# 1.07 X1000 (1.2-3.4); LYMPH% 12.5 % (20.5-51.1); MCH 27.2 PG (27-31); MCHC 32.7 g/dL (33-37); MONO# 0.57 X1000 (0.11-0.59); MONO% 6.7 % (1.7-9.3); MPV 11.5 FL (7.4-10.4); NEUT# 6.61 X1000 (1.4-6.5); NEUT% 77.4 % (42.2-75.2); PLT 214 X1000 (130-400); RBC 4.01 XMIL (4.7-6.1); RDW 20.5 % (11.5-14.5); WBC 8.54 X1000 (4.8-10.8)
[2019-02-07 14:45] LABS: INR 1.08; PROTIME 14.9 Seconds (11.0-16.0)
[2019-02-07 14:46] LABS: PTT 33.9 Seconds (22.3-41.8)
[2019-02-07 14:53] LABS: AGAP 11; ALB/GLOB RATIO 1.4; ALKALINE PHOSPHATASE 89 U/L (32-122); BUN 13 mg/dL (8-22); CALCIUM 8.9 mg/dL (8.8-10.2); CHLORIDE 101 mmol/L (98-107); COSMO 280; CREATININE 0.9 mg/dL (0.7-1.2); ESTIMATED GFR > 60; GLUCOSE 171 mg/dL (70-104); GOT 31 U/L (10-34); GPT 30 U/L (10-44); POTASSIUM 4.3 mmol/L (3.5-5.1); SODIUM 138 mmol/L (136-145); TCO2 26 mmol/L (25-35); TOTAL BILIRUBIN 0.45 mg/dL (0.20-1.00); TOTAL PROTEIN 6.9 g/dL (6.3-8.3)
[2019-02-07 14:56] LABS: CK PROFILE 210 U/L (24-204)
[2019-02-07 15:10] LABS: CK INDEX 3.9 (0.0-2.5); CK-MB 8.23 ng/mL (0.0-5.0)
[2019-02-07] MEDS ORDERED: LASIX IV ONE (15:21)
[2019-02-07] MEDS ORDERED: SEROQUEL PO PRN (21:30)
[2019-02-07] MEDS: CORDARONE PO SCH (22:10)
[2019-02-07] MEDS: ALTACE PO SCH (22:10)
[2019-02-07] MEDS: CARAFATE PO SCH (22:10)
[2019-02-07] MEDS: LASIX IV SCH (22:10)
[2019-02-07] MEDS ORDERED: INSULIN PEN NEEDLES ONE (22:14)
--- NOTE | 2019-02-07 22:31 | HISTORY AND PHYSICAL ---
PRIMARY CARE PHYSICIAN: Anatoliy Whittington MD BOBBIN WASHER: Dr. Price in [place]. PRESENTING COMPLAINT: Chest pain and shortness of breath. HISTORY OF PRESENTING COMPLAINT: Mr. Byrd is a 78-year-old gentleman who is known very well to our services. He has a history of coronary artery disease status post CABG in 2013. He has chronic atrial fibrillation, status post Watchman procedure at [place], systolic heart failure, diabetes mellitus and hypertension. Mr. Byrd was recently discharged from this hospital on 12/07/2018 because of a similar chest pain and shortness of breath. He was evaluated by Cardiology. Some changes were made to his medications. He seems to be doing fairly okay. He said he has an appointment with Dr. Price on Sunday; however, yesterday while sitting on his chair on a balcony, he started having this excruciating substernal chest pain, which was about 8/10, was associated with some nauseation and then after that he started also having some difficulty breathing. He took some aspirin and he said he felt slightly better so he went to sleep, but he could not have a very good sleep throughout the night because of difficulty breathing and the residual chest pain. He said this morning he took another dose of aspirin. He felt slightly better, but then the pain just came back and got even worse so he decided to come to the emergency department where he was initially evaluated. His presenting blood pressure was 131/69, pulse of 87, respirations 18, temperature 98.4 degrees. The patient was saturating 98% on room air. His chest x-ray seems to suggest small pleural effusions bilateral. No infiltrates and his EKG shows atrial fibrillation but rate controlled. No ST-segment changes or T-wave abnormality was noted. We have been consulted by the ER staff for admission because of chest pain to rule out any ongoing acute coronary artery syndrome. PAST MEDICAL HISTORY: 1. Coronary artery disease status post CABG in 2013. Patient had HERNANDEZ to the LAD, vein graft to 2nd diagonal, vein graft to obtuse marginal. The patient had a nuclear stress test done in January 2018 about a year ago, which seems to have been completely normal with ejection fraction of 52%. 2. Chronic atrial fibrillation. The patient has Watchman procedure in [place]. 3. Systolic heart failure. 4. Diabetes mellitus. 5. Dyslipidemia. PAST SURGICAL HISTORY: 1. Status post Watchman procedure and CABG. 2. Cataract removal. ALLERGIES: To latex and penicillin. FAMILY HISTORY: Noncontributory. SOCIAL HISTORY: Patient quit smoking years ago. He denies any alcohol or tobacco use. He is currently . REVIEW OF SYSTEMS: Fourteen-point review of systems conducted with Mr. Byrd. Unremarkable except what we have in the HPI. Specifically, he denies any abdominal pain or any diarrhea. No urinary symptoms and no neurological symptoms at this point. PHYSICAL EXAMINATION: VITAL SIGNS: Blood pressure is currently 131/75, pulse is 71, respirations 24. Patient is saturating 100% on room air. GENERAL EXAM: Mr. Byrd is a 78-year-old male who is in bed. He does not seem to be in any cardiopulmonary distress. HEENT: Mucosa is pink and moist. Anicteric. Acyanotic. Head is normocephalic and atraumatic. NECK: Supple. Trachea is midline, and there is no thyromegaly. RESPIRATORY SYSTEM: There is good air entry bilaterally. Few crackles in the posterior lung thakkar. No rhonchi. No accessory muscle use. CARDIOVASCULAR: Irregularly irregular heart rate but rate controlled. There is a 3/6 TR murmur. [place] beat is at 5th to 6th intercostal space midclavicular line. No gallops. There is an old sternotomy scar on the anterior chest wall. GASTROINTESTINAL: Abdomen is soft. There is minimum tenderness in the epigastrium but no rebound, no guarding, no hepatosplenomegaly. EXTREMITIES: About 1+ pedal edema in both lower extremities. CENTRAL NERVOUS SYSTEM: Patient is awake, alert, oriented. No focal neurological deficit. Power is 5/5 in all extremities. Sensation is intact. Cranial nerves 2 through 12 have been grossly examined, and they are unremarkable. PSYCHIATRIC: Mr. Byrd is very cooperative and seems to have very good insight and judgment. LABORATORY DATA: WBC is 8.54, hemoglobin is 10.9, platelet count of 214. Chemistry is also reviewed, is completely normal. ProB is 2289. It seems to be even slightly better than the latest we have on him. His troponins have been done 2 times, and they are both negative. EKG, as I said, shows atrial fibrillation with a rate of about 77. No T-waves or ST-segment abnormality. ASSESSMENT: Mr. Byrd who has a history of congestive heart failure, coronary artery disease, ischemic cardiomyopathy, who presented to the emergency department because of ongoing shortness of breath and chest discomfort. Mr. Byrd was admitted almost about 2 months ago for similar presentation, and workup was negative. We are going to admit him overnight just to rule out acute coronary syndrome. 1. Dyspnea secondary to congestive heart failure exacerbation Mr. Byrd will be admitted overnight for diuretic therapy. We will restart him back also on his home medications. 2. Chest pain, questionable angina pectoris. The patient's home medication has been restarted. We are going to trend his troponin to rule out any acute coronary syndrome, and we will also repeat his EKG tomorrow morning. If they are all negative, I think we can discharge Mr. Byrd. 3. Chronic atrial fibrillation currently rate controlled. We will continue with his amiodarone and metoprolol. The patient is also status post Watchman device placement so no need for anticoagulation. 4. Diabetes mellitus/hypertension/dyslipidemia, stable. 5. Normocytic anemia. We will check his iron studies to rule out any underlying iron deficiency. 6. History of ischemic cardiomyopathy with ejection fraction of 40% on recent echocardiogram noted. PLAN: I have discussed my findings and plan with Mr. Byrd. He knows we are going to admit him for overnight observation. We are going to gently diurese him overnight. We will restart him back on his home medications. If his troponins and repeat EKG in the morning seems all to be negative, I think we will be able to discharge him home and let him follow up with Dr. Price on Sunday. We will also start him on PPI and Carafate for possible GI related courses. cc: Jorgito García MD
[2019-02-07] MEDS: HUMULIN 70/30 SUBQ SCH (22:41)
[2019-02-07] MEDS: G.I. COCKTAIL PO ONE (22:41)
[2019-02-08] MEDS: G.I. COCKTAIL PO ONE (00:06)
[2019-02-08] MEDS: CARAFATE PO SCH ×2 (06:27→11:43)
[2019-02-08] MEDS ORDERED: PROTONIX PO SCH (07:00)
[2019-02-08 07:19] LABS: BASO# 0.03 X1000 (0.0-0.2); BASO% 0.4 % (0.0-0.8); EOS# 0.24 X1000 (0.0-0.7); EOS% 3.5 % (0.0-10.0); HEMOGLOBIN 11.5 g/dL (14.0-18.0); IMM GRAN# 0.02 X1000 (0.0-0.04); IMM GRAN% 0.3 % (0.0-0.5); LYMPH# 1.22 X1000 (1.2-3.4); MCH 27.4 PG (27-31); MCHC 33.8 g/dL (33-37); MONO# 0.49 X1000 (0.11-0.59); MONO% 7.2 % (1.7-9.3); MPV 12.4 FL (7.4-10.4); NEUT# 4.78 X1000 (1.4-6.5); NEUT% 70.6 % (42.2-75.2); PLT 197 X1000 (130-400); RDW 20.3 % (11.5-14.5); WBC 6.78 X1000 (4.8-10.8)
[2019-02-08 07:36] LABS: AGAP 8; ALB/GLOB RATIO 1.6; ALBUMIN 3.9 g/dL (3.5-5.0); ALKALINE PHOSPHATASE 80 U/L (32-122); BUN 13 mg/dL (8-22); CALCIUM 9.1 mg/dL (8.8-10.2); CHLORIDE 104 mmol/L (98-107); COSMO 292; CREATININE 0.9 mg/dL (0.7-1.2); ESTIMATED GFR > 60; GLUCOSE 229 mg/dL (70-104); GOT 25 U/L (10-34); GPT 28 U/L (10-44); IRON SATURATION 11 %; MAGNESIUM 1.9 mg/dL (1.5-2.7); POTASSIUM 4.6 mmol/L (3.5-5.1); SODIUM 143 mmol/L (136-145); TCO2 31 mmol/L (25-35); TIBC 339 ug/dL; TOTAL BILIRUBIN 0.54 mg/dL (0.20-1.00); TOTAL IRON 37 ug/dL (53-167); TOTAL PROTEIN 6.4 g/dL (6.3-8.3); UNBOUND IRON 302 ug/dL (112-346)
[2019-02-08 07:55] LABS: TSH 3.08 uIUmL (0.27-4.20)
[2019-02-08 08:00] VITALS: BP 143/78
--- NOTE | 2019-02-08 08:47 | Diag Imaging Result Doc PS360 ---
EXAM: CHEST-2 VIEWS HISTORY: pulmonary edema follow up TECHNIQUE: Chest two views COMPARISON: 02/07/2019 FINDINGS: The lungs are well expanded. The heart is not enlarged. Sternal wires are present. The vessels are not distended. There are no infiltrates. No pleural effusions on the current study. IMPRESSION: No pulmonary edema. Electronically signed by Nils Barry 02/08/2019 8:44 AM
[2019-02-08] MEDS: LASIX IV SCH (08:55)
[2019-02-08] MEDS: CORDARONE PO SCH (08:55)
[2019-02-08] MEDS: HUMULIN 70/30 SUBQ SCH (08:56)
[2019-02-08] MEDS: ALTACE PO SCH (08:56)
[2019-02-08] MEDS ORDERED: LOVENOX SUBQ SCH (09:00)
[2019-02-08] MEDS ORDERED: PLAVIX PO SCH (09:00)
[2019-02-08] MEDS ORDERED: ASPIRIN EC PO SCH (09:00)
[2019-02-08] MEDS ORDERED: TOPROL XL PO SCH (09:00)
[2019-02-08] MEDS ORDERED: HUMULIN 70/30 SUBQ SCH (17:30)
--- NOTE | 2019-02-08 23:52 | DISCHARGE SUMMARY ---
ADMISSION DATE: 02/07/2019 DISCHARGE DATE: 02/08/2019 DISPOSITION: Is home. FOLLOWUP: Will be 1. Dr. Whittington. 2. Dr. Price. CONSULTATION: None. INVASIVE PROCEDURES: None. IMAGING STUDIES OF SIGNIFICANT: An initial chest x-ray on presentation show small bilateral pleural effusions. A repeat chest x-ray this morning shows no pulmonary edema, no infiltrates, no pleural effusions on this current study. ADMISSION DIAGNOSIS: 1. Congestive heart failure with an exacerbation. 2. Atypical chest pain. 3. Chronic atrial fibrillation. 4. Diabetes mellitus. DIAGNOSIS AT THE TIME OF DISCHARGE: 1. Dyspnea on presentation secondary to pulmonary edema and pleural effusions. 2. Acute on chronic congestive heart failure with ejection fraction of 40% improved. 3. Chronic atrial fibrillation currently rate controlled. 4. Diabetes mellitus. 5. Hypertension. 6. Dyslipidemia. 7. Atypical chest pain on presentation with normal EKG and troponins. The patient will follow up with Cardiology on outpatient base. DISCHARGE MEDICATIONS: 1. Aspirin 81 mg daily. 2. Amiodarone 200 mg b.i.d. 3. Furosemide 40 mg daily. Seroquel 25 mg p.o. at bedtime. 1. Metoprolol 25 mg p.o. daily. 2. Plavix 75 mg p.o. daily. 3. Pantoprazole 40 mg p.o. daily. Ramipril 5 mg b.i.d. 1. Insulin 70/30 25 units b.i.d. 2. Carafate 1 g p.o. q.6. PRESENTING COMPLAINT: Shortness of breath and chest pain. HISTORY OF PRESENT COMPLAINT: Mr. Byrd 78-year-old gentleman who is known to have congestive heart failure, atrial fibrillation, diabetes and dyslipidemia. Recently discharged from the hospital in November because of atypical chest pain. He was extensively worked out and Cardiology evaluated him as well. He seems to have been doing well at home but then came this time because of chest discomfort and shortness of breath. He was found to be in mild congestive heart failure with edema in the lower extremity and some pleural effusions. He was admitted overnight, gently diuresed. This morning he feels a whole lot better. A repeat chest x- ray shows no more pleural effusions. He became negative balance over 1000 mL of fluid and his pro B has also significantly gone down to 1306. His current vitals are stable. Blood pressure is 143/78, pulse of 84, respiration is 18. Trended troponins have all come back 4 times negative. A repeat EKG is also negative. We think his chest discomfort is noncardiac related. He seems to have improved with the GI cocktail and Carafate. He has been advised to follow up with Cardiology and also with GI. This morning he feels a whole lot better. He is completely asymptomatic. We think he is stable for discharge. All the discharge instructions have been discussed with him and he voiced understanding. TIME SPENT: 35 minutes. cc: MD Dr. Albert Pham [place]
--- NOTE | 2019-02-10 07:13 | EKG Report ---
Test Performed on : 02/08/2019 07:34:24 AM Test Reason : Afib Blood Pressure : / mmHG Vent. Rate : 099 BPM Atrial Rate : 144 BPM P-R Int : 000 ms QRS Dur : 084 ms QT Int : 382 ms P-R-T Axes : 000 023 086 degrees QTc Int : 490 ms Atrial fibrillation. Septal infarct , age undetermined Abnormal ECG When compared with ECG of 07-FEB-2019 13:20, (Unconfirmed) QT has lengthened Confirmed by Anjelica ALFREDO, Juanito Abernathy ([id number]) on 02/10/2019 5:05:34 PM
== END 2019-02-08 12:10 | disposition home or self-care (01) ==
LOC: 3N 12:59 → ED 12:59
PROVIDERS: ATTEND Internal Medicine
CPT/HCPCS: 71020; 71046; 80053; 82550; 82553; 82607; 82728; 82746; 82948; 83540; 83550; 83735; 83880; 84100; 84443; 84484; 85025; 85610; 85730; 93005; 93010; A9270; J1650; J1940; XXXXX